=== PATIENT | male | born 1945 | race Caucasian/White ===

== ENCOUNTER 2017-09-06 22:44 | Inpatient (IN) | payer MEDICARE, BC ==
[2017-09-07 00:20] LABS: #Basophils 0.1 thou/uL (0.0-0.2); #Eosinphils 0.1 thou/uL (0.0-0.7); #Lymphocytes 2.1 thou/uL (1.20-3.40); #Monocytes 0.8 thou/uL (0.11-0.59); #Neutrophils 4.2 thou/uL (1.40-6.50); %Basophils 0.7 % (0.0-1.0); %Eosinophils 1.3 % (0.0-10.0); %Lymphocytes 28.9 % (21.0-51.0); %Monocytes 11.4 % (0.0-10.0); Hematocrit 34.4 % (42.0-52.0); Mean Platelet Volume 8.4 fL (7.4-10.4); White Blood Cell (WBC) Count 7.2 thou/uL (4.8-10.8)
[2017-09-07 00:47] LABS: Troponin I 2.015 ng/mL (< 0.028)
[2017-09-07 00:48] LABS: ALT (SGPT) 34 U/L (8-55); AST (SGOT) 39 U/L (5-34); Alkaline Phosphatase 67 U/L (40-150); Anion Gap 14 mmol/L (10-20); BUN (Urea Nitrogen) 21 mg/dL (8.4-25.7); Bilirubin, Total 1.4 mg/dL (0.2-1.2); Calc. Creatinine Clearance 0 mL/min (70-130); Calcium 9.3 mg/dL (7.8-10.44); Carbon Dioxide 23 mmol/L (23-31); Chloride 103 mmol/L (98-107); Estimated GFR-MDRD 60; Globulin 3.4 g/dL (2.4-3.5); Protein, Total 7.4 g/dL (5.8-8.1)
[2017-09-07] MEDS ORDERED: Enoxaparin Sodium 40 MG/0.4 ML SYRINGE ONE (01:11)
[2017-09-07] MEDS ORDERED: Diltiazem HCl 125 MG, Admixture Fee 1 EACH in Sodium Chloride 0.9% 100 ML SLOW IVP SCH (01:30)
[2017-09-07 03:58] LABS: #Eosinphils 0.1 thou/uL (0.0-0.7); #Lymphocytes 1.6 thou/uL (1.20-3.40); #Monocytes 0.8 thou/uL (0.11-0.59); #Neutrophils 3.5 thou/uL (1.40-6.50); %Basophils 0.4 % (0.0-1.0); %Lymphocytes 26.2 % (21.0-51.0); %Monocytes 13.3 % (0.0-10.0); Mean Platelet Volume 8.6 fL (7.4-10.4); Red Blood Cell (RBC) Count 4.23 mill/uL (4.70-6.10)
[2017-09-07 04:16] LABS: Anion Gap 12 mmol/L (10-20); BUN (Urea Nitrogen) 23 mg/dL (8.4-25.7); Calc. Creatinine Clearance 79 mL/min (70-130); Calcium 8.9 mg/dL (7.8-10.44); Carbon Dioxide 26 mmol/L (23-31); Chloride 105 mmol/L (98-107); Estimated GFR-MDRD 61
[2017-09-07 04:27] LABS: Critical Call Chem Troponin I RESULT DECREASING; Troponin I 1.892 ng/mL (< 0.028)
[2017-09-07] MEDS ORDERED: Acetaminophen 325 MG TAB PO PRN (05:03)
[2017-09-07] MEDS ORDERED: Dextrose 5% in Water 1,000 ML IV PRN (05:03)
[2017-09-07] MEDS ORDERED: HYDROcodone/Acetaminophen 5/325 mg Tablet PO PRN (05:03)
[2017-09-07] MEDS ORDERED: Dextrose 50% Abboject 50 ML SYRINGE SLOW IVP PRN (05:03)
[2017-09-07] MEDS ORDERED: HumaLOG 300 UNITS/3 ML VIAL SC PRN ×2 (05:03)
--- NOTE | 2017-09-07 05:11 | PDOC.EVN ---
Event Note - Event Note Event Note: [id number] h&p dictated 1. Chest pain + NSTEMI 2. aFLUTTER 3. DM type 2 4. H/O HTN PlaN; see orders
--- NOTE | 2017-09-07 06:26 | HP ---
DATE OF ADMISSION: 09/06/2017 CHIEF COMPLAINT: Chest pain. HISTORY OF PRESENT ILLNESS: The patient is a 72-year-old male with past medical history of diabetes mellitus type 2, hypertension, history of hemorrhoids. Initially went to outside ER, because of chest pain. Patient started having chest pain today all of sudden, substernal pressure kind of pain associated with some dyspnea also. Patient's symptoms are associated with some nausea also. Denies any fever, denies any chills, denies any cough, denies any sputum production. Symptoms persisted, so he went to outside ER. In the outside ER, the patient was found to be in atrial flutter, the patient's heart rate in 120s to 130s, so patient was given metoprolol IV and also Lovenox 40 mg and patient was transferred here. The patient denies any chest pain, denies any palpations at this time. Denies any nausea, denies any vomiting. PAST MEDICAL HISTORY: As per HPI. PAST SURGICAL HISTORY: Back surgery x2. SOCIAL HISTORY: Denies smoking, denies alcohol, denies any drugs. FAMILY HISTORY: Positive for heart problems. REVIEW OF SYSTEMS: Constitutional: Denies fever, denies any chills. Eyes: No vision problems. Ears: Denies any hearing loss. Neck: Denies any neck pain. Cardiovascular System: Positive for chest pain. Respiratory System: Denies any cough, denies any sputum production. Positive for dyspnea. Musculoskeletal: Positive for bilateral lower extremity swelling. Cranial Nerve System: Denies syncope, denies lightheadedness. Psychiatric: Denies depression or anxiety. Integument: Denies any rash. All other review of systems are reviewed and are negative. PHYSICAL EXAMINATION: CONSTITUTIONAL/VITAL SIGNS: At the time of H\T\P perform, heart rate of 130s, blood pressure is 110/70, afebrile, pulse ox 97%. GENERAL: The patient appears comfortable. HEENT: Pupils equal, round, and reactive to light. Anterior nares patent. Nose normal. Teeth intact. Tongue is moist. NECK: Supple, no JVD. CARDIOVASCULAR SYSTEM: S1, S2 present. Irregular, tachycardic. No murmurs. RESPIRATORY: Diminished breath sounds present. Positive for crackles. No wheezing, no rhonchi. GASTROINTESTINAL: Abdomen is soft, nontender, no guarding, no organomegaly, no masses felt. MUSCULOSKELETAL: Positive for trace edema. CRANIAL NERVE SYSTEM: Awake, follows commands, speech intact, sensory intact. PSYCHIATRIC: Mood appropriate at this time. INTEGUMENTARY: No rashes seen. LABORATORY DATA: At the time of H\T\P performed, sodium is 135, potassium 4, chloride 104, CO2 21, BUN 18, creatinine 1, troponin is 2.015. CK-MB 11.3, white count 7.2, hemoglobin 10.9, platelet count is 230. BNP 405. ASSESSMENT AND PLAN: The patient is a 72-year-old male: 1. Atrial flutter. Plan to start the patient on some Cardizem drip at 5 mg per hour. We will admit the patient to IMU for close monitoring. 2. Heg-RX-[id number] myocardia infarction plus chest pain. The patient is currently chest pain free. The patient received only 40 mg Lovenox in the outside ER, we will get another 40 mg Lovenox now. We will consult cardiology to evaluate the patient. We will check 2D echo. 3. History of hypertension. Monitor blood pressure. Continue home blood pressure medications. 4. History of diabetes mellitus type 2, monitor blood sugars. We will do insulin sliding scale. 5. History of hemorrhoids. Monitor the patient closely. The case was discussed in detail with the patient. CE
[2017-09-07 06:55] LABS: Troponin I 2.101 ng/mL (< 0.028)
--- NOTE | 2017-09-07 08:06 | RAD ---
PORTABLE AP CHEST XRAY: DATE: 09/07/17. HISTORY: Shortness of breath and chest pain. New onset of atrial flutter. COMPARISON: No prior studies are available for comparison. FINDINGS: Cardiac silhouette is magnified by projection but does appear mildly enlarged. Pulmonary vasculatur e is within normal limits. The lungs are clear. Vascular calcification is seen in the thoracic aor ta. There are degenerative changes in the spine. IMPRESSION: 1. No acute cardiopulmonary process. 2. Mild cardiomegaly. POS: MED
--- NOTE | 2017-09-07 11:18 | PDOC.PN ---
- Subjective Encounter Start Date: 09/07/17 Encounter Start Time: 10:45 Subjective: f/u for CP and A-flutter with RVR on Cardizem gtt. Troponins elevated -: and tx with Lovenox and ASA. - Objective MAR Reviewed: Yes Vital Signs & Weight: Vital Signs (12 hours) Temp Pulse Resp BP Pulse Ox 09/07/17 07:41 98.1 F 104 H 16 95 09/07/17 07:07 98.1 F 104 H 16 126/69 95 09/07/17 02:46 98.4 F 109 H 18 129/90 100 09/07/17 02:35 98.4 F 109 H 18 99 Weight Weight 217 lb 9.6 oz Result Diagrams: 09/08/17 05:10 09/08/17 05:10 Additional Labs: Accuchecks 09/07/17 05:39 POC Glucose 134 H Radiology Reviewed by me: Yes (PCXR - mild vascular prominence) EKG Reviewed by me: Yes (Tele - A-flutter in 80's) Phys Exam - Physical Examination Constitutional: NAD HEENT: PERRLA, oral pharynx no lesions Neck: no JVD, supple Respiratory: no wheezing, clear to auscultation bilateral Cardiovascular: irregular Gastrointestinal: soft, non-tender, no distention, positive bowel sounds Musculoskeletal: no edema, pulses present Neurological: normal sensation, moves all 4 limbs Psychiatric: A&O x 3 Skin: normal turgor, cap refill <2 seconds Dx/Plan (1) Atrial flutter with rapid ventricular response Code(s): I48.92 - UNSPECIFIED ATRIAL FLUTTER Status: Acute Comment: Continue Cardizem gtt, Cardiology consult, EP evaluation, 2D echo pending, check TSH and Mg++ (2) NSTEMI (non-ST elevated myocardial infarction) Code(s): I21.4 - NON-ST ELEVATION (NSTEMI) MYOCARDIAL INFARCTION Status: Acute Comment: Lovenox 40mg sc q12h, ASA, Cardiology evaluation (3) Normocytic anemia Code(s): D64.9 - ANEMIA, UNSPECIFIED Status: Chronic Comment: Chronic anemia , mild, no evidence of acute loss, serial H/H monitoring (4) CKD (chronic kidney disease), stage II Code(s): N18.2 - CHRONIC KIDNEY DISEASE, STAGE 2 (MILD) Status: Chronic Comment: Avoid nephrotoxic agents and limit contrast media, serial monitoring - Plan DVT proph w/SCDs Stable overall -: Continue ASA 325mg daily -: Continue Lovenox 40mg sc q12h -: 2D echo pending -: EP evaluation for ablation * Check TSH, Mg++ * AM lab: BMP, CBC
[2017-09-07] MEDS ORDERED: Aspirin 325 mg Enteric Coated Tablet PO SCH (11:45)
[2017-09-07] MEDS ORDERED: Furosemide 40 MG/4 ML VIAL SLOW IVP SCH (13:00)
--- NOTE | 2017-09-07 14:16 | CON ---
DATE OF SERVICE: 09/07/2017 SERVICE: Pulmonary Medicine. REASON FOR CONSULTATION: CU patient. HISTORY OF PRESENT ILLNESS: The patient is a very pleasant 72-year-old white male with past medical history significant for nothing. He presents to the hospital with a roughly 1-2 week history of in creasing orthopnea. For the last 3 days, he started having dyspnea with exertion that progressed. He had some heaviness in his chest. He also was feeling some palpitations. He did not have any anahy sea, vomiting, diarrhea. He notes some constipation. He otherwise, was in his usual state of healt h and had no infectious prodrome or sick contacts. He does note some excessive daytime sleepiness a nd other features that could be consistent with sleep apnea which have gotten much worse over the pa st 2-3 weeks. That being said, it is not clear whether or not these were acute features more chroni c associated with possible sleep apnea. PAST MEDICAL HISTORY: 1. Type 2 diabetes mellitus. 2. Hypertension. 3. Atrial fibrillation with rapid ventricular response. PAST SURGICAL HISTORY: Back surgery x2. SOCIAL HISTORY: Negative for alcohol, tobacco or illicit drug use. He has no exposure to chemicals , dust asbestos or tuberculosis. FAMILY HISTORY: Noncontributory. ALLERGIES: PENICILLIN G. REVIEW OF SYSTEMS: General, head, ears, eyes, nose, throat, cardiovascular, respiratory, GI, , mu sculoskeletal, neurologic and skin is negative except as mentioned in the HPI. MEDICATIONS LIST: His inpatient medications were reviewed. There were no specific updates were mad e at this time. PHYSICAL EXAMINATION: VITAL SIGNS: Afebrile, pulse 73, blood pressure 139/81, respirations 16, saturation 99% on 2 liters nasal cannula. GENERAL: The patient is awake and alert, in no apparent distress. LUNGS: Excellent air entry. There is no prolonged expiratory phase. Depending crackles are presen t. He has excellent air entry. I do not appreciate rhonchi or wheezing. HEART: Normal rate, irregular. ABDOMEN: Soft, nontender, nondistended, bowel sounds positive. MUSCULOSKELETAL: No cyanosis or clubbing. There is trace pitting in the bilateral lower extremitie s. GENITOURINARY: No F[place] catheter. NEUROLOGIC: Grossly nonfocal. LABORATORY DATA: WBC 6.0, hemoglobin 10.4, and platelets 208,000. Basic metabolic profile is unrem arkable with creatinine of 1.17. Liver function studies are unremarkable. Cardiac enzymes are 2.10 1. Total bilirubin is minimally elevated. IMAGING: Chest x-ray demonstrates no acute cardiopulmonary abnormality. There was mild cardiomegal y present. Cephalization is evident. Echocardiogram demonstrates 35% ejection fraction. Atrial fl utter is the underlying rhythm. Left ventricular size is mildly enlarged. ASSESSMENT: 1. Acute hypoxic respiratory failure, improving. 2. Atrial flutter with rapid ventricular response and variable conduction, currently rate controlle d. 3. Acute systolic heart failure. 4. Non-ST elevation myocardial infarction. PLAN: Cardiology consultation has been placed. The patient can be transitioned out of the IMCU to the telemetry unit. Pulmonary Critical Care will continue to follow for the next 24-48 hours while we initiate our investigation into the patient's presentation. Currently, he is rate controlled wit h diltiazem drip. Anticoagulation has already been initiated.
[2017-09-07] MEDS ORDERED: Communication Order-Pharmacy FS SCH (15:00)
[2017-09-07] MEDS ORDERED: diphenhydrAMINE 50 MG CAP PO SCH (15:00)
[2017-09-07] MEDS ORDERED: Diazepam 5 MG TAB PO SCH (15:00)
[2017-09-07] MEDS ORDERED: Famotidine/PF 20 mg/2ml Vial IVP SCH (15:00)
[2017-09-07] MEDS ORDERED: Rivaroxaban 10 MG TAB PO SCH (18:00)
[2017-09-07] MEDS: Senokot S 8.6-50 MG TAB PO SCH (20:30)
[2017-09-07] MEDS ORDERED: Enoxaparin Sodium 100 MG/ML SYRINGE SC SCH ×2 (21:00)
[2017-09-08 06:08] LABS: #Eosinphils 0.2 thou/uL (0.0-0.7); #Monocytes 0.7 thou/uL (0.11-0.59); #Neutrophils 4.9 thou/uL (1.40-6.50); %Basophils 0.2 % (0.0-1.0); %Eosinophils 2.3 % (0.0-10.0); %Lymphocytes 15.2 % (21.0-51.0); %Monocytes 10.5 % (0.0-10.0); Mean Platelet Volume 8.8 fL (7.4-10.4); Red Blood Cell (RBC) Count 4.39 mill/uL (4.70-6.10); White Blood Cell (WBC) Count 6.9 thou/uL (4.8-10.8)
[2017-09-08 06:21] LABS: ALT (SGPT) 29 U/L (8-55); AST (SGOT) 27 U/L (5-34); Alkaline Phosphatase 61 U/L (40-150); Anion Gap 15 mmol/L (10-20); BUN (Urea Nitrogen) 19 mg/dL (8.4-25.7); Bilirubin, Total 1.6 mg/dL (0.2-1.2); Calc. Creatinine Clearance 84 mL/min (70-130); Calcium 8.7 mg/dL (7.8-10.44); Carbon Dioxide 25 mmol/L (23-31); Chloride 101 mmol/L (98-107); Estimated GFR-MDRD 73; Protein, Total 6.4 g/dL (5.8-8.1)
[2017-09-08 06:29] LABS: Critical Call Chem Troponin I RESULT DECREASING; Troponin I 2.018 ng/mL (< 0.028)
[2017-09-08] MEDS: Senokot S 8.6-50 MG TAB PO SCH (07:43)
[2017-09-08] MEDS ORDERED: Aspirin 325 mg Enteric Coated Tablet PO SCH (09:00)
[2017-09-08] MEDS ORDERED: Furosemide 20 MG TAB PO SCH (09:00)
[2017-09-08] MEDS ORDERED: Carvedilol 3.125 MG TAB PO SCH (09:00)
[2017-09-08] MEDS ORDERED: Midazolam HCl 2 mg/2 ml Vial ONE (09:47)
[2017-09-08] MEDS ORDERED: Fentanyl 100 MCG/2 ML VIAL ONE (09:47)
[2017-09-08] MEDS ORDERED: Heparin 10,000 UNITS/1 ML VIAL ONE (09:51)
[2017-09-08] MEDS ORDERED: Nitroglycerin 100MG/250ML BOT 250 ML ONE (09:51)
[2017-09-08] MEDS ORDERED: Acetaminophen/Codeine 30-300mg Tablet PO PRN ×2 (10:18)
[2017-09-08] MEDS ORDERED: Nitroglycerin 0.4 MG TAB (25 Tab Bottle) SL PRN (10:18)
[2017-09-08] MEDS ORDERED: traMADol HCl 50 MG TAB PO PRN (10:18)
[2017-09-08] MEDS ORDERED: Sodium Chloride 0.9% 200 ML IV SCH (10:30)
[2017-09-08] MEDS ORDERED: Midazolam HCl 5 mg/5 ml Vial ONE (10:58)
[2017-09-08] MEDS ORDERED: Fentanyl 250 MCG/5 ML VIAL ONE (10:58)
--- NOTE | 2017-09-08 11:20 | PDOC.PN ---
- Subjective Encounter Start Date: 09/08/17 Encounter Start Time: 11:15 Subjective: f/u for A-flutter RVR, NSTEMI and LHC showing 3v CAD. Plan for urgent -: CABG this am. No current CP. - Objective MAR Reviewed: Yes Vital Signs & Weight: Vital Signs (12 hours) Temp Pulse Resp BP BP Pulse Ox 09/08/17 10:19 88 16 129/89 09/08/17 10:18 97.6 F 88 16 129/89 94 L 09/08/17 08:00 98.4 F 71 16 127/85 96 09/08/17 05:29 93 16 129/90 09/08/17 04:00 97.9 F 132 H 18 132/93 H 95 Weight Weight 198 lb 8 oz I&O: 09/07/17 09/08/17 09/09/17 06:59 06:59 06:59 Intake Total 790 Output Total 2875 Balance -2084 Result Diagrams: 09/08/17 05:10 09/08/17 05:10 Additional Labs: Accuchecks 09/08/17 09/07/17 09/07/17 05:58 20:29 16:57 POC Glucose 142 H 185 H 129 H Laboratory Tests 09/07/17 09/07/17 11:22 11:22 Magnesium 1.8 TSH 3rd Generation [id number] Radiology Reviewed by me: Yes (LHC - 3v CAD, EF 35%, 2D echo - EF 30-35%) EKG Reviewed by me: Yes (Tele - A-flutter in 80's) Phys Exam - Physical Examination Constitutional: NAD HEENT: PERRLA, oral pharynx no lesions Neck: no JVD, supple Respiratory: no wheezing, clear to auscultation bilateral Cardiovascular: irregular Gastrointestinal: soft, non-tender, no distention, positive bowel sounds Musculoskeletal: no edema, pulses present Neurological: normal sensation, moves all 4 limbs Psychiatric: A&O x 3 Skin: normal turgor, cap refill <2 seconds Dx/Plan (1) Atrial flutter with rapid ventricular response Code(s): I48.92 - UNSPECIFIED ATRIAL FLUTTER Status: Acute Comment: Likely due to underlying ischemia and CAD, rate control measures, EP eval (2) NSTEMI (non-ST elevated myocardial infarction) Code(s): I21.4 - NON-ST ELEVATION (NSTEMI) MYOCARDIAL INFARCTION Status: Acute Comment: ASA 325mg daily, plan for CABG today, statin for outpt (3) Normocytic anemia Code(s): D64.9 - ANEMIA, UNSPECIFIED Status: Chronic Comment: Chronic anemia , mild, no evidence of acute loss, serial H/H monitoring (4) CKD (chronic kidney disease), stage II Code(s): N18.2 - CHRONIC KIDNEY DISEASE, STAGE 2 (MILD) Status: Chronic Comment: Avoid nephrotoxic agents and limit contrast media, serial monitoring (5) 3-vessel coronary artery disease Status: Acute Comment: LAD, Cx, RCA with varying stenosis, plan for urgent CABG 09/08/17 (6) Ischemic cardiomyopathy Code(s): I25.5 - ISCHEMIC CARDIOMYOPATHY Status: Chronic Comment: EF 30-35% , see above, CABG today - Plan [employer], DVT proph w/SCDs CABG today -: Continue ASA 325mg daily -: Statin after CABG -: Continue Coreg 3.125mg BID -: May need to consider LifeVest on d/c * AM lab: BMP, CBC, Lipid panel
[2017-09-08] MEDS ORDERED: [UNRECOGNIZED DRUG - REMARK] FS SCH (11:22)
[2017-09-08] MEDS ORDERED: Heparin 10,000 UNITS/1 ML VIAL 30,000 UNITS in Sodium Chloride 0.9% 1,000 ML FS SCH (11:30)
--- NOTE | 2017-09-08 11:39 | CON ---
DATE OF CONSULTATION: 09/07/2017 REFERRING PHYSICIAN: Dr. Stout REASON FOR CONSULTATION: Chest pain with atrial flutter. HISTORY OF PRESENT ILLNESS: Mr. Couch is a 72-year-old gentleman who is very active at home. He has a history of type 2 diabetes mellitus and hypertension. He presented to [facility] complaining of chest pain described as a substernal pressure and dyspnea. 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 He is very active, works ou [employer], has just not been able to perform at his peak over this period of time. On evaluation he was found to be in atrial flutter with variable ventricular response and was transf erred to our facility for further evaluation. Echo was performed and showed LV dysfunction in the moderate range with ejection fraction of 30-35%. He has never had heart problems in the past that he knows of and has otherwise been stable. PAST MEDICAL HISTORY: 1. Type 2 diabetes mellitus. 2. Hypertension. 3. Hemorrhoids. PAST SURGICAL HISTORY: Back surgery x2. ALLERGIES: PENICILLIN. SOCIAL HISTORY: He denies tobacco use, ethanol abuse, recreational drug use. FAMILY HISTORY: Positive for heart problems, but not at an early age. CURRENT MEDICATIONS AT HOME: Metformin 500 mg b.i.d. REVIEW OF SYSTEMS: As per the history of present illness. Remainder of 12 system review is negativ e. PHYSICAL EXAMINATION: VITAL SIGNS: Blood pressure 129/89, pulse 130s and irregularly irregular, respiratory rate 16 and n onlabored, temperature 98.8. GENERAL: This is a well-developed, well-nourished 72-year-old gentleman who appears young er than his stated age. He is alert and oriented x4, he answers questions appropriately. HEENT: Head was atraumatic, normocephalic. Pupils were equally round and reactive. Sclerae and co njunctivae are clear. There are no oral lesions. NECK: Supple, no JVD, thyromegaly, carotid bruits. CHEST: Symmetrical inspiration and expiration. HEART: Irregularly irregular with no murmur, S3 or S4. The PMI is nondisplaced, not enlarged. LUNGS: Clear to auscultation in all stinson. No adventitious sounds appreciated. ABDOMEN: Soft, nontender, nondistended without mass or organomegaly. Bowel sounds are present in a ll 4 quadrants. No flank bruits auscultated. EXTREMITIES: 2+ pulses noted bilaterally. Lower extremity strength 5/5 bilaterally. There is no c lubbing, cyanosis or edema. NEUROLOGIC: Grossly intact with no focal motor deficits appreciated. DATABASE: EKG reveals atrial flutter with variable conduction. CBC reveals a white count 7, H\T\H of 10 and 34, platelet count 213,000. Differential; white blood cells normal. Red cell indices normocytic. Chemistries reveal normal electrolytes, BUN and creatinine 19 and 1.8. GFR is estimated at 73. Glu cose 152. LFTs were normal. Troponin was mildly elevated to 2, CK and CK-MB measurements are arturo l. ASSESSMENT: 1. Recent onset atrial flutter with variable response. 2. Isolated troponin elevation secondary to #1. 3. Left ventricular dysfunction, new diagnosis. 4. Congestive heart failure, acute, combined. 5. Chronic kidney disease stage 2. 6. Type 2 diabetes mellitus. 7. Hypertension, controlled. RECOMMENDATIONS: 1. From a cardiac standpoint, he is stable, a bit volume overloaded with mild dyspnea on exertion. We opted to include diuretics in his medicine regimen currently for stabilization of this condition . Due to his LV dysfunction I do think that further evaluation for underlying coronary disease is w arranted and necessary. We have discussed risks, benefits and possible complications involving this procedure and we will proceed via radial approach if possible. We will set this up for tomorrow mo rning. 2. Depending on the status of his coronary anatomy, we will decide whether revascularization is nec essary prior to anticoagulation and treatment for his underlying rhythm disorder. We will make furt her recommendations based on the results of his cath. We will follow along and appreciate the opportunity to participate in his care.
[2017-09-08] MEDS ORDERED: Levofloxacin 500 mg/D5W 100 ml Premix Bag ONE (11:41)
[2017-09-08] MEDS ORDERED: Clindamycin/D5W 900 mg/50 ml Premix Bag ONE (11:41)
--- NOTE | 2017-09-08 11:53 | CON ---
DATE OF CONSULTATION: 09/08/2017 HISTORY OF PRESENT ILLNESS: Mr. Couch is a 72-year-old gentleman who was admitted to the [facility], short of breath with increasing levels of the intensity along with heaviness in his chest. Janay wood also had some palpitations. He has undergone cardiac catheterization, which revealed severe 3-ves gilberto disease. Ejection fraction is approximately 30%. He is in atrial flutter currently. The patient has no previous history of coronary artery disease, peripheral vascular disease, cerebro vascular disease, aortic aneurysm, rather vascular problems. He has no arrhythmia history. Current ly, he is resting comfortably in bed without complaint. PAST MEDICAL HISTORY: 1. Hypertension. 2. Diabetes mellitus. PAST SURGICAL HISTORY: Back surgery x2 and hernia surgery. SOCIAL HISTORY: He does not use alcohol, tobacco or other drugs. He [place]. ALLERGIES: PENICILLIN. REVIEW OF SYSTEMS: Ten-point review of systems is performed and is negative except as above. PHYSICAL EXAMINATION: GENERAL: This is a well-developed, well-nourished male resting comfortably in bed without complaint . VITAL SIGNS: Height 6 feet, weight 198 pounds, BSA is 2.14. Temperature is 97.6, pulse is 88 and r egular, blood pressure 129/89. HEENT: Sclerae nonicteric. Pupils equal, round bilaterally. NECK: Supple without bruit. CHEST: Clear bilaterally. HEART: Rhythm is regular without murmur. ABDOMEN: Soft and nontender without mass. EXTREMITIES: No cyanosis, clubbing or edema. VASCULAR: He has palpable carotid, radial, femoral, posterior tibial pulses bilaterally. VENOUS: There are no venous varicosities or venous stasis changes. ASSESSMENT AND PLAN: This is a pleasant 72-year-old gentleman, who has been in and out of atrial fl utter along with shortness of breath and chest heaviness. Cardiac catheterization revealed severe 3 -vessel disease with potential targets include the left anterior descending, diagonal, ramus, obtuse marginal, and distal right coronary. I have discussed coronary artery bypass grafting along with m aze procedure and ligation of his left atrial appendage. He is agreeable to proceed. We will plan on surgery as soon as the operating room is available.
[2017-09-08] MEDS ORDERED: PHENYLEPHRINE-NS 100 MCG/ML 10 ML SYRINGE ONE ×2 (11:54→12:11)
[2017-09-08] MEDS ORDERED: Dexmedetomidine 200 MCG/2 ML VIAL ONE (11:54)
[2017-09-08] MEDS ORDERED: Propofol 200 MG/20 ML VIAL ONE (12:11)
[2017-09-08] MEDS ORDERED: Esmolol 100 MG/10 ML VIAL ONE (12:11)
[2017-09-08] MEDS ORDERED: Lidocaine 1% PF 5 ML VIAL ONE (12:11)
[2017-09-08] MEDS ORDERED: ePHEDrine/0.9% NaCl/PF SYRINGE 50 mg/10 ml ONE (12:11)
[2017-09-08] MEDS ORDERED: Milrinone 10 MG/10 ML VIAL ONE (12:30)
[2017-09-08] MEDS ORDERED: Insulin Regular 300 UNITS/3 ML VIAL ONE (14:08)
[2017-09-08] MEDS ORDERED: Rocuronium Bromide 50 MG/5 ML VIAL ONE (14:28)
[2017-09-08 16:46] LABS: Oxyhemoglobin 96.7 % (94.0-97.0)
[2017-09-08 16:47] LABS: Sodium 140 mmol/L (135-148)
[2017-09-08 16:48] LABS: Mechanical Tidal Volume 600 ml; Mode SIMV/PS; Modified Allen's Test NOT DONE; Pressure Support 10 cmH2O; Vent YES
[2017-09-08] MEDS ORDERED: Ondansetron HCl/PF 4 MG/2 ML Vial IVP PRN (16:50)
[2017-09-08] MEDS ORDERED: Bisacodyl 5 MG TAB PO PRN (16:50)
[2017-09-08] MEDS ORDERED: Norepinephrine 8 MG/0.9% NS 250 ML IVPB PRN (16:50)
[2017-09-08] MEDS ORDERED: Potassium Chloride 20 MEQ/100 ML PREMIX BAG IVPB PRN (16:50)
[2017-09-08] MEDS ORDERED: Fentanyl 100 MCG/2 ML VIAL SLOW IVP PRN ×2 (16:50)
[2017-09-08] MEDS ORDERED: Mag-Al 1200 mg/1200 mg/30 ML UDCUP PO PRN (16:50)
[2017-09-08] MEDS ORDERED: HYDROcodone/Acetaminophen 5/325 mg Tablet PO PRN (16:50)
[2017-09-08] MEDS ORDERED: Post-Op Insulin Drip Protocol IVPB ONE (16:50)
[2017-09-08] MEDS ORDERED: Morphine 2 MG/ML SYRINGE SLOW IVP PRN (16:50)
[2017-09-08] MEDS ORDERED: D5 1/2 NS w/20 mEq KCL 1,000 ML IV SCH (16:50)
[2017-09-08] MEDS ORDERED: hydrALAZINE 20 MG/ML VIAL SLOW IVP PRN (16:50)
[2017-09-08] MEDS ORDERED: Phenylephrine 10 MG/NS 250 ML 250 ML IVPB PRN (16:50)
[2017-09-08] MEDS ORDERED: Bisacodyl 10 MG SUPP PR PRN (16:50)
[2017-09-08] MEDS ORDERED: Nitroglycerin 50 MG/250 ML BOT 250 ML IVPB PRN (16:50)
[2017-09-08] MEDS ORDERED: Promethazine HCl 25 MG/ML VIAL IM PRN (16:50)
[2017-09-08] MEDS ORDERED: Guaifenesin DM 100-10/5 ML UDCUP PO PRN (16:50)
[2017-09-08] MEDS ORDERED: Hetastarch 6% 500 ML 500 ML IVPB PRN (16:50)
[2017-09-08] MEDS ORDERED: Acetaminophen 325 MG TAB PO PRN (16:50)
[2017-09-08] MEDS ORDERED: Dextrose 50% Abboject 50 ML SYRINGE SLOW IVP PRN (16:57)
[2017-09-08] MEDS ORDERED: Dextrose 5% in Water 1,000 ML IV PRN (16:57)
[2017-09-08 17:02] LABS: #Eosinphils 0.4 thou/uL (0.0-0.7); #Lymphocytes 1.8 thou/uL (1.20-3.40); #Monocytes 1.3 thou/uL (0.11-0.59); #Neutrophils 13.6 thou/uL (1.40-6.50); %Basophils 0.2 % (0.0-1.0); %Eosinophils 2.1 % (0.0-10.0); %Lymphocytes 10.5 % (21.0-51.0); %Monocytes 7.5 % (0.0-10.0); Hematocrit 30.5 % (42.0-52.0); Mean Platelet Volume 8.3 fL (7.4-10.4); Red Blood Cell (RBC) Count 3.81 mill/uL (4.70-6.10)
[2017-09-08 17:06] LABS: PTT 30.5 SEC (22.9-36.1); Prothrombin Time 20.3 SEC (12.0-14.7)
[2017-09-08] MEDS ORDERED: Magnesium 2 GM/NS 0.9% 50 ML 2 GM in Premix Bag 1 BAG IVPB SCH (17:15)
[2017-09-08 17:17] LABS: Anion Gap 12 mmol/L (10-20); BUN (Urea Nitrogen) 17 mg/dL (8.4-25.7); Calc. Creatinine Clearance 109 mL/min (70-130); Calcium 7.9 mg/dL (7.8-10.44); Carbon Dioxide 23 mmol/L (23-31); Chloride 105 mmol/L (98-107); Estimated GFR-MDRD Greater than 90
[2017-09-08] MEDS: Ketorolac Tromethamine 30 MG/ML VIAL IVP SCH ×2 (17:24→23:01)
[2017-09-08] MEDS: Clindamycin/D5W 900 MG in Premix Bag 1 BAG IVPB SCH ×2 (17:25→23:00)
[2017-09-08] MEDS ORDERED: Rivaroxaban 10 MG TAB PO SCH (18:00)
--- NOTE | 2017-09-08 18:35 | RAD ---
CHEST ONE VIEW: 09/08/17 HISTORY: Post open heart surgery. COMPARISON: Chest one view prior day. FINDINGS: Patient intubated with endotracheal tube tip at level of the clavicles. Central venous catheter is i n place with tip at the anterior SVC. Heart size is enlarged. No large pericardial effusion. Thoracostomy tube is in place. Enteric tube tip is at the gastric body. IMPRESSION: Expected postoperative changes. No complication. POS: JESSICA
--- NOTE | 2017-09-08 19:05 | OP ---
DATE OF OPERATION: 09/08/2017 PREOPERATIVE DIAGNOSES: Coronary artery disease/hypertension/severely depressed left ventricular ej ection fraction/atrial flutter. POSTOPERATIVE DIAGNOSES: Coronary artery disease/hypertension/severely depressed left ventricular e jection fraction/atrial flutter. PROCEDURES: Coronary bypass grafting x5: 1. Left internal mammary artery to 2.0 mm LAD -- good conduit and target. 2. Reversed saphenous vein to 1.5 mm diagonal -- good conduit and target. 3. Reverse saphenous vein to 1.5 mm OM -- good conduit and small target. 4. Reverse saphenous vein to 2.0 mm ramus -- good conduit and target. 5. Reverse saphenous vein to 1.5 mm acute marginal -- good conduit and small target. SURGEONS: Dr. Vamshi Hale and Dr. Chris Lu. ANESTHESIA: General endotracheal, Dr. Loki Nation and Dr. Clifton Pastrana. PUMP TIME: 101 minutes. CROSS-CLAMP TIME: 58 minutes. LOW CORE TEMPERATURE: 32 degrees Celsius. ICT BUSINESS DEVELOPMENT MANAGER: Rita Harper. DRAINS: 24-Swazi chest tubes x2. DRIPS: Levophed at 8 mcg/kg per minute. TRANSFUSIONS: None. PROCEDURE IN DETAIL: After consent was obtained, the patient was brought to the operating room and placed in the supine position on the operating room table. Appropriate anesthetic monitor was place d and general endotracheal anesthesia induced. Chest, abdomen, and legs were prepped and draped in usual sterile fashion. Greater saphenous vein was harvested from the left lower extremity using an endoscopic technique. Wounds were irrigated and closed in layers. Median sternotomy was performed. Left internal mammary artery was harvested as a pedicle graft. The patient was systemically hepar inized. Distal pedicle was divided and infused with papaverine. Thymic fat and pericardium were di vided with electrocautery. Pericardial stay sutures were placed. Aortic and atrial cannulation was performed. After adequate heparinization, retrograde prime was performed. The patient was placed on cardiopulmonary bypass. Distal targets were marked. Aortic cross-clamp was applied and antegrad e sanguinous cardioplegic arrest obtained. One liter of antegrade cold cardioplegia was given. Top ical cold solution was used. tab ticketbroker epicardial ablation device was used to ablate both left and right pulmonary veins x2 at th e venoatrial atrial junction. The base of the left atrial appendage was ablated x1. Left atrial ap pendage was then ligated using 4-0 Prolene in a dual layer horizontal mattress fashion. Reversed saphenous vein was anastomosed to the OM in end-to-side fashion with running 7-0 Prolene frey ture. Anastomosis was tested and was hemostatic. Reversed saphenous vein was anastomosed to the ac genevieve marginal in end-to-side fashion with running 7-0 Prolene suture. Anastomosis was tested and was hemostatic. Reversed saphenous vein was anastomosed to the ramus in end-to-side fashion with runni ng 7-0 Prolene suture. Anastomosis was tested and was hemostatic. Reversed saphenous vein was anas tomosed to the diagonal in end-to-side fashion with running 7-0 Prolene suture. Anastomosis was north y[place]ir and was hemostatic. Mammary artery was brought through a window in the pericardium and anastomo sed to the LAD in end-to-side fashion with running 7-0 Prolene suture. On release of the mammary cl amp, there was good hooding in the anastomosis and good hemostasis. There was good distal flow. Pe dicle was secured with interrupted 6-0 Prolene suture. Cross-clamp was removed and partial occludin g clamp placed. Saphenous veins to the acute marginal ramus and OM were anastomosed individual punc h sites in the aorta. Saphenous vein to the diagonal was anastomosed to the sidewall of the ramus g raft. Partial occluding clamp was removed and grafts deaired. Anastomoses were inspected for hemos tasis, which was good. The patient was warmed and weaned from cardiopulmonary bypass. After resump tion of sinus rhythm, good hemodynamics, and temperature greater than 36.5, bypass was discontinued. Transfusions were given. Protamine was administered. Decannulation was performed and pursestring sutures secured. After adequate hemostasis had been obtained, 24-Swazi chest tubes were placed in the mediastinum. Ventricular pacing wires had been placed, but never used. The sternum was treate d with vancomycin paste. After adequate hemostasis had been obtained, the sternum was closed with # 7 wire. Sternum was treated with platelet-rich plasma and wires twisted. Wounds were irrigated, tr eated with platelet-poor plasma, and closed in multiple layers. The patient tolerated the procedure well, and was transferred to the intensive care unit in stable, but critical condition. Needle, sp onge, and instrument counts were all reported as correct at the end of the procedure.
[2017-09-08] MEDS: Insulin Regular 300 UNITS/3 ML VIAL SC PRN ×2 (19:47→23:01)
[2017-09-08 20:12] LABS: Pressure Support 10 cmH2O; Sodium 138 mmol/L (135-148); Vent YES
[2017-09-08] MEDS: Famotidine/PF 20 mg/2ml Vial SLOW IVP SCH (20:12)
[2017-09-08 20:13] LABS: Mode CPAP
[2017-09-08 22:41] LABS: Hematocrit 30.9 % (42.0-52.0)
[2017-09-09] MEDS: Insulin Regular 300 UNITS/3 ML VIAL SC PRN ×6 (04:31→23:28)
[2017-09-09 04:35] LABS: #Monocytes 1.3 thou/uL (0.11-0.59); #Neutrophils 11.8 thou/uL (1.40-6.50); %Basophils 0.1 % (0.0-1.0); %Eosinophils 0.1 % (0.0-10.0); %Lymphocytes 7.1 % (21.0-51.0); %Monocytes 8.9 % (0.0-10.0); Hematocrit 29.9 % (42.0-52.0); Mean Platelet Volume 9.7 fL (7.4-10.4); Red Blood Cell (RBC) Count 3.68 mill/uL (4.70-6.10)
[2017-09-09 05:06] LABS: Anion Gap 13 mmol/L (10-20); BUN (Urea Nitrogen) 23 mg/dL (8.4-25.7); Calc. Creatinine Clearance 71 mL/min (70-130); Carbon Dioxide 24 mmol/L (23-31); Chloride 105 mmol/L (98-107); Estimated GFR-MDRD 61
[2017-09-09] MEDS: Clindamycin/D5W 900 MG in Premix Bag 1 BAG IVPB SCH ×2 (05:16→12:48)
[2017-09-09] MEDS: Ketorolac Tromethamine 30 MG/ML VIAL IVP SCH ×4 (05:16→23:22)
[2017-09-09] MEDS: Aspirin 325 MG TAB PO SCH (08:28)
[2017-09-09] MEDS: Famotidine/PF 20 mg/2ml Vial SLOW IVP SCH ×2 (08:28→20:36)
[2017-09-09] MEDS ORDERED: Albumin 25% 25 GM/100 ML BOT IVPB SCH (09:00)
[2017-09-09] MEDS: Magnesium 2 GM/NS 0.9% 50 ML 2 GM in Premix Bag 1 BAG IVPB SCH (09:11)
--- NOTE | 2017-09-09 09:39 | RAD ---
CHEST 1 VIEW: HISTORY: Open heart surgery. COMPARISON: Chest 1 view prior day. FINDINGS: Enteric tube has been removed. The patient is extubated. Central venous catheter is similar. Hear t size is prominent. Small opacity right lung base, likely a small layering effusion. IMPRESSION: Interval extubation and removal of the enteric tube without complication. POS: JESSICA
--- NOTE | 2017-09-09 12:27 | PDOC.CTH ---
Cardiology Progress Note - Subjective He is doing well. He had his bypass yesterday x 5. - Objective Vital Signs Temp Pulse Resp Pulse Ox 09/09/17 07:56 97 09/09/17 07:31 97.9 F 74 15 94 L 09/09/17 07:00 97.9 F 09/09/17 04:00 98.5 F 94 L Weight 187 lb 9.814 oz 09/08/17 09/09/17 09/10/17 06:59 06:59 06:59 Intake Total 790 932 280 Output Total 2875 675 119 Balance -2085 257 161 - Physical Examination General/Neuro: alert & oriented x3, NAD Neck: no JVD present Lungs: unlabored respirations Heart: RRR Abdomen: NT/ND Extremities: + edema B (2+ left leg) - Telemetry Telemetry Rhythm: NSR - Labs Result Diagrams: 09/09/17 03:45 09/09/17 03:45 Troponin/CKMB CK-MB (CK-2) 11.3 ng/mL (0-6.6) H* 09/07/17 00:10 Troponin I 2.018 ng/mL (< 0.028) H* 09/08/17 05:10 - Assessment/Plan 1. Multivessel CAD 2. s/p CABG 3. Aflutteer, currenty in sinus. PLAN: - Continue post op care. - Increase PT once tubes out. - Aspirin, statin for life. - BB and ACEI once BP allows. - Xarelto before discharge for stroke prophylaxis.
--- NOTE | 2017-09-09 12:41 | PRG ---
DATE OF SERVICE: 09/09/2017 SUBJECTIVE: This morning, he is awake, alert, responsive. He was extubated last night. OBJECTIVE: VITAL SIGNS: Sats are 96%, blood pressure is low at 101/63, temperature 97. He is on low-dose Levo phed. I's and O's are 932 in and 675 out. CHEST: With decreased breath sounds. No wheezing. CARDIAC: Normal S1 and S2. ABDOMEN: Soft, no masses. IMAGING: His chest x-ray shows no acute infiltrates. LABORATORY DATA: White count 14,000, H\T\H 9 and 29, platelet count 216. Electrolytes are normal. IMPRESSION: 1. Status post coronary artery bypass graft. 2. Hypotension. 3. Diabetes. Trial of albumin has been given. Hopefully, we can wean the Levophed. Continue observation in the ICU. We will follow.
--- NOTE | 2017-09-09 16:11 | PDOC.PN ---
- Subjective Encounter Start Date: 09/09/17 Encounter Start Time: 15:30 Subjective: f/u s/p CABG x 5 grafts POD#1. States doing ok overall. Remains on -: Levophed gtt for hypotension but o/w doing ok. - Objective MAR Reviewed: Yes Vital Signs & Weight: Vital Signs (12 hours) Temp Pulse Resp Pulse Ox 09/09/17 12:00 97.8 F 09/09/17 07:56 97 09/09/17 07:31 97.9 F 74 15 94 L 09/09/17 07:00 97.9 F Weight Weight 187 lb 9.814 oz Most Recent Monitor Data Heart Rate from ECG 75 NIBP 120/70 NIBP BP-Mean 85 Respiration from ECG 14 SpO2 97 I&O: 09/08/17 09/09/17 09/10/17 06:59 06:59 06:59 Intake Total 543 588 6313 Output Total 2875 675 314 Balance -2085 257 1116 Result Diagrams: 09/09/17 03:45 09/09/17 03:45 Additional Labs: Accuchecks 09/09/17 09/09/17 09/09/17 12:32 08:34 03:45 POC Glucose 123 H 121 H 124 H 09/08/17 09/08/17 09/08/17 22:59 19:46 16:42 POC Glucose 144 H 133 H 86 09/08/17 16:25 POC Glucose 85 Radiology Reviewed by me: Yes (PCXR - extubation, no acute process, lines in place) EKG Reviewed by me: Yes (Tele - SR in 90's) Phys Exam - Physical Examination Constitutional: NAD alert, responsive, smiling HEENT: PERRLA, oral pharynx no lesions Neck: no JVD, supple chest incision CDI, CT's in place Respiratory: no wheezing, clear to auscultation bilateral Cardiovascular: RRR Gastrointestinal: soft, non-tender, no distention, positive bowel sounds Musculoskeletal: no edema, pulses present Neurological: normal sensation, moves all 4 limbs Psychiatric: A&O x 3 Skin: normal turgor, cap refill <2 seconds Dx/Plan (1) NSTEMI (non-ST elevated myocardial infarction) Code(s): I21.4 - NON-ST ELEVATION (NSTEMI) MYOCARDIAL INFARCTION Status: Acute Comment: ASA 325mg daily, statin, B-edvin, KATIA-i for d/c (2) Atrial flutter with rapid ventricular response Code(s): I48.92 - UNSPECIFIED ATRIAL FLUTTER Status: Acute Comment: Converted to SR, continue to monitor, Xarelto for d/c (3) Normocytic anemia Code(s): D64.9 - ANEMIA, UNSPECIFIED Status: Chronic Comment: Chronic anemia , mild, no evidence of acute loss, serial H/H monitoring (4) CKD (chronic kidney disease), stage II Code(s): N18.2 - CHRONIC KIDNEY DISEASE, STAGE 2 (MILD) Status: Chronic Comment: Avoid nephrotoxic agents and limit contrast media, serial monitoring (5) 3-vessel coronary artery disease Status: Acute Comment: LAD, Cx, RCA with varying stenosis, s/p CABG x 5 POD # 1 (6) Ischemic cardiomyopathy Code(s): I25.5 - ISCHEMIC CARDIOMYOPATHY Status: Chronic Comment: EF 30-35% , see above, CABG today (7) Status post aorto-coronary artery bypass graft Code(s): Z95.1 - PRESENCE OF AORTOCORONARY BYPASS GRAFT Status: Acute Comment: POD #1, routine post op care - Plan plan discussed w/ family, PT/OT, social human services assistants, incentive spirometry, DVT proph w/SCDs Continue critical support -: Wean Levophed as clinically tolerated -: Continue ASA and Statin -: Cardiac rehab when able to ambulate -: AM lab: BMP, CBC * .
[2017-09-09] MEDS: HYDROcodone/Acetaminophen 5/325 mg Tablet PO PRN (16:50)
[2017-09-09] MEDS: Atorvastatin Calcium 40 MG TAB PO SCH (20:36)
[2017-09-10] MEDS: Insulin Regular 300 UNITS/3 ML VIAL SC PRN ×5 (04:12→19:29)
[2017-09-10 04:36] LABS: Anion Gap 13 mmol/L (10-20); BUN (Urea Nitrogen) 34 mg/dL (8.4-25.7); Calc. Creatinine Clearance 39 mL/min (70-130); Carbon Dioxide 24 mmol/L (23-31); Chloride 101 mmol/L (98-107); Estimated GFR-MDRD 29
[2017-09-10] MEDS: Ketorolac Tromethamine 30 MG/ML VIAL IVP SCH (05:09)
[2017-09-10] MEDS: Aspirin 325 MG TAB PO SCH (08:19)
[2017-09-10] MEDS: Magnesium 2 GM/NS 0.9% 50 ML 2 GM in Premix Bag 1 BAG IVPB SCH (08:19)
[2017-09-10] MEDS: Famotidine/PF 20 mg/2ml Vial SLOW IVP SCH ×2 (08:20→20:14)
[2017-09-10] MEDS: Hydrocortisone Sod Succ/PF 100 mg/2 ml Vial IVP SCH ×3 (08:52→20:14)
[2017-09-10 09:06] LABS: Hematocrit 28.7 % (42.0-52.0); Mean Platelet Volume 9.2 fL (7.4-10.4); Red Blood Cell (RBC) Count 3.55 mill/uL (4.70-6.10); White Blood Cell (WBC) Count 12.1 thou/uL (4.8-10.8)
--- NOTE | 2017-09-10 09:16 | PDOC.PN ---
- Subjective Encounter Start Date: 09/10/17 Encounter Start Time: 09:14 Patient seen and examined. No new complaints. No overnight events feeling good. No chest pain or sob. UO 15-20cc/hr per the bedside nurse. No fever or chills. - Objective MAR Reviewed: Yes Vital Signs & Weight: Vital Signs (12 hours) Temp Pulse Ox 09/10/17 07:54 96 09/10/17 07:00 98.3 F 09/10/17 04:00 98.5 F 09/10/17 00:00 98.6 F Weight Weight 207 lb 10.807 oz Most Recent Monitor Data Heart Rate from ECG 74 NIBP 115/66 NIBP BP-Mean 73 Respiration from ECG 22 SpO2 98 I&O: 09/09/17 09/10/17 09/11/17 06:59 06:59 06:59 Intake Total 932 2726 450 Output Total 675 1229 105 Balance 257 1497 345 Result Diagrams: 09/10/17 04:10 09/10/17 04:10 Additional Labs: Accuchecks 09/10/17 09/10/17 09/09/17 08:04 04:10 23:27 POC Glucose 144 H 136 H 127 H 09/09/17 09/09/17 09/09/17 19:22 18:14 12:32 POC Glucose 192 H 188 H 123 H Phys Exam - Physical Examination Constitutional: NAD HEENT: sclera anicteric Neck: supple Respiratory: no wheezing, no rales Cardiovascular: RRR Gastrointestinal: soft Musculoskeletal: no edema Neurological: non-focal, moves all 4 limbs Psychiatric: normal affect, A&O x 3 Skin: no rash Dx/Plan (1) TAURUS (acute kidney injury) Code(s): N17.9 - ACUTE KIDNEY FAILURE, UNSPECIFIED Status: Acute (2) 3-vessel coronary artery disease Status: Acute Comment: LAD, Cx, RCA with varying stenosis, s/p CABG x 5 POD # 1 (3) Atrial flutter with rapid ventricular response Code(s): I48.92 - UNSPECIFIED ATRIAL FLUTTER Status: Acute Comment: Converted to SR, continue to monitor, Xarelto for d/c (4) NSTEMI (non-ST elevated myocardial infarction) Code(s): I21.4 - NON-ST ELEVATION (NSTEMI) MYOCARDIAL INFARCTION Status: Acute Comment: ASA 325mg daily, statin, B-edvin, KATIA-i for d/c (5) Ischemic cardiomyopathy Code(s): I25.5 - ISCHEMIC CARDIOMYOPATHY Status: Chronic Comment: EF 30-35% , see above, CABG today - Plan cont current plan of care * . TAURUS - will stop ketorolac. fluids per CT surgery and PCCM. started on albumin today repeat bmp this afternoon. AM labs. will monitor. Appreciate input from CV surgery, PCCM and cardiology.
[2017-09-10 09:59] LABS: Crenated RBC SLIGHT = 1-5 cells (100X) (None Seen); Neutrophil 86 % (42-75); Polychromasia SLIGHT = 2-3 cells (100X) (0-2/hpf)
[2017-09-10 15:39] LABS: Anion Gap 14 mmol/L (10-20); BUN (Urea Nitrogen) 41 mg/dL (8.4-25.7); Calc. Creatinine Clearance 38 mL/min (70-130); Calcium 8.1 mg/dL (7.8-10.44); Carbon Dioxide 23 mmol/L (23-31); Chloride 99 mmol/L (98-107); Estimated GFR-MDRD 28
--- NOTE | 2017-09-10 17:07 | PDOC.CTH ---
Cardiology Progress Note - Subjective Doing better, No new issues. - Objective Vital Signs Temp Pulse Resp Pulse Ox 09/10/17 15:00 98.7 F 09/10/17 11:00 97.9 F 09/10/17 08:00 98.3 F 72 16 99 09/10/17 07:54 96 09/10/17 07:00 98.3 F Weight 207 lb 10.807 oz 09/09/17 09/10/17 09/11/17 06:59 06:59 06:59 Intake Total 932 2726 1378 Output Total 675 1229 435 Balance 257 1497 943 - Physical Examination General/Neuro: alert & oriented x3, NAD Neck: no JVD present Lungs: CTA, unlabored respirations Heart: RRR Abdomen: NT/ND Extremities: + edema B (1+) - Telemetry Telemetry Rhythm: NSR - Labs Result Diagrams: 09/10/17 04:10 09/10/17 15:00 Troponin/CKMB CK-MB (CK-2) 11.3 ng/mL (0-6.6) H* 09/07/17 00:10 Troponin I 2.018 ng/mL (< 0.028) H* 09/08/17 05:10 - Assessment/Plan 1. Multivessel CAD 2. s/p CABG 3. Aflutter, currently in sinus. 4. TAURUS on CKD. PLAN: - Continue post op care. - Start PT once tubes out. - Aspirin, statin for life. - BB and ACEI once BP allows. - Xarelto before discharge for stroke prophylaxis. - Still needing levophed to maintain BP.
--- NOTE | 2017-09-10 17:36 | PRG ---
DATE OF SERVICE: 09/10/2017 SUBJECTIVE: Awake, alert and responsive. No pain and no shortness of breath. OBJECTIVE: Blood pressure is still low; the A-line is 97/54, cuff 126/63; pulse 82; respirations 18 . CHEST: Decreased breath sounds. No wheezing. CARDIAC: Normal S1, S2. ABDOMEN: Soft, no masses. LABORATORY DATA: I's and O's are 2726 in and 1229 out. He creatinine has gone up to 2.23, BUN is 3 4. Cortisol level is 19. IMPRESSION: 1. Status post coronary artery bypass graft. 2. Hypotension, probably relative adrenal insufficiency, his cortisol level is 19 with low blood pr essure. 3. Mild renal failure. PLAN: Avoid nephrotoxic drugs. Trial of albumin, hopefully will get him off the pressors. Diet, PT and supportive care.
[2017-09-10] MEDS: Atorvastatin Calcium 40 MG TAB PO SCH (20:14)
[2017-09-11] MEDS: Insulin Regular 300 UNITS/3 ML VIAL SC PRN ×5 (00:20→23:37)
[2017-09-11] MEDS: Hydrocortisone Sod Succ/PF 100 mg/2 ml Vial IVP SCH ×2 (03:31→08:44)
[2017-09-11 05:01] LABS: Anion Gap 10 mmol/L (10-20); BUN (Urea Nitrogen) 47 mg/dL (8.4-25.7); Calc. Creatinine Clearance 52 mL/min (70-130); Calcium 8.5 mg/dL (7.8-10.44); Carbon Dioxide 27 mmol/L (23-31); Chloride 100 mmol/L (98-107); Estimated GFR-MDRD 40
[2017-09-11] MEDS: Aspirin 325 MG TAB PO SCH (08:43)
[2017-09-11] MEDS: Famotidine/PF 20 mg/2ml Vial SLOW IVP SCH (08:44)
[2017-09-11] MEDS ORDERED: Artificial Tears 18 DROP/0.9 ML EA EYE PRN (11:46)
[2017-09-11] MEDS ORDERED: diphenhydrAMINE 25 MG CAP PO PRN (11:46)
[2017-09-11] MEDS ORDERED: Nitroglycerin 0.4 MG TAB (25 Tab Bottle) SL PRN (11:46)
[2017-09-11] MEDS ORDERED: Guaifenesin DM 100-10/5 ML UDCUP PO PRN (11:46)
[2017-09-11] MEDS ORDERED: Milk Of Magnesia 30 ML UDCUP PO PRN (11:46)
[2017-09-11] MEDS ORDERED: Bisacodyl 10 MG SUPP PR PRN (11:46)
[2017-09-11] MEDS ORDERED: Bisacodyl 5 MG TAB PO PRN (11:46)
[2017-09-11] MEDS ORDERED: Mineral Oil ENEMA PR PRN (11:46)
[2017-09-11] MEDS ORDERED: Zolpidem Tartrate 5 MG TAB PO PRN (11:46)
[2017-09-11] MEDS ORDERED: Mag-Al 1200 mg/1200 mg/30 ML UDCUP PO PRN (11:46)
--- NOTE | 2017-09-11 11:48 | PRG ---
DATE OF SERVICE: 09/11/2017 SERVICE: Pulmonary Medicine. INTERVAL HISTORY: The patient is doing absolute outstanding. He denies any shortness of breath or chest discomfort. He has been up walking around. He is sitting in the chair multiple times daily. Otherwise, there were no overnight events. PHYSICAL EXAMINATION: VITAL SIGNS: Afebrile, pulse 85, blood pressure 137/75, respirations 21, saturation 100% on room air. GENERAL: Patient is awake, alert, in no apparent distress. LUNGS: Excellent air entry with no prolonged expiratory phase, wheezing, rhonchi or crackles. HEART: Normal rate, regular. ABDOMEN: Soft, nontender, nondistended. Bowel sounds positive. MUSCULOSKELETAL: No cyanosis or clubbing. Trace to 1+ pitting in the bilateral lower extremities, it is worse on the right. GENITOURINARY: Fofana catheter in place. NEUROLOGIC: Grossly nonfocal. LABORATORY DATA: Creatinine 1.70. BUN 47 and gently up trending. Sodium 133. Basic metabolic profile is otherwise unremarkable. ASSESSMENT: 1. Acute hypoxic respiratory failure, improving. 2. Atrial flutter with rapid ventricular response, currently normal sinus rhythm. 3. Acute systolic heart failure. 4. Non-ST elevation myocardial infarction. 5. Coronary artery bypass graft, postoperative day #3. PLAN: The patient can be transitioned out of the ICU to the floor. Pulmonary or Critical Care will continue to follow while he remains inhouse for the time being. Fofana catheter will be removed today. His kidney injury is improving. MTDD
[2017-09-11] MEDS ORDERED: Polyethylene Glycol 3350 17 GM Packet PO PRN (11:57)
[2017-09-11] MEDS ORDERED: Insulin Regular 300 UNITS/3 ML VIAL SC PRN (12:00)
[2017-09-11] MEDS ORDERED: Dextrose 50% Abboject 50 ML SYRINGE SLOW IVP PRN (12:00)
[2017-09-11] MEDS ORDERED: Dextrose 5% in Water 1,000 ML IV PRN (12:00)
--- NOTE | 2017-09-11 12:44 | PDOC.PN ---
- Subjective Encounter Start Date: 09/11/17 Encounter Start Time: 11:30 Patient seen and examined. No new complaints. No overnight events - Objective MAR Reviewed: Yes Vital Signs & Weight: Vital Signs (12 hours) Temp Pulse Pulse Pulse Resp BP BP 09/11/17 12:10 89 86 137/75 124/80 09/11/17 12:00 98.4 F 09/11/17 08:00 98.4 F 80 23 H 09/11/17 07:13 09/11/17 04:00 98.4 F Pulse Ox Pulse Ox Pulse Ox 09/11/17 12:10 100 100 09/11/17 12:00 09/11/17 08:00 09/11/17 07:13 97 09/11/17 04:00 Weight Weight 210 lb 5.136 oz Most Recent Monitor Data Heart Rate from ECG 88 NIBP 132/80 NIBP BP-Mean 90 Respiration from ECG 24 SpO2 100 I&O: 09/10/17 09/11/17 09/12/17 06:59 06:59 06:59 Intake Total 2726 1498 600 Output Total 1229 940 645 Balance 1497 558 -45 Result Diagrams: 09/10/17 04:10 09/12/17 06:03 Additional Labs: Accuchecks 09/11/17 09/11/17 09/11/17 11:59 07:14 03:41 POC Glucose 197 H 174 H 185 H 09/11/17 09/10/17 09/10/17 00:19 19:27 15:06 POC Glucose 240 H 265 H 253 H 09/08/17 15:51 POC Glucose 108 EKG Reviewed by me: Yes (Tele SR) Phys Exam - Physical Examination Constitutional: NAD Respiratory: no wheezing, no rhonchi Cardiovascular: RRR, no rub Gastrointestinal: soft, positive bowel sounds Neurological: moves all 4 limbs Dx/Plan (1) Atrial flutter with rapid ventricular response Code(s): I48.92 - UNSPECIFIED ATRIAL FLUTTER Status: Acute Comment: in SR (2) NSTEMI (non-ST elevated myocardial infarction) Code(s): I21.4 - NON-ST ELEVATION (NSTEMI) MYOCARDIAL INFARCTION Status: Acute Comment: s/p CABG (3) TAURUS (acute kidney injury) Code(s): N17.9 - ACUTE KIDNEY FAILURE, UNSPECIFIED Status: Acute (4) CKD (chronic kidney disease), stage II Code(s): N18.2 - CHRONIC KIDNEY DISEASE, STAGE 2 (MILD) Status: Chronic Comment: Avoid nephrotoxic agents and limit contrast media, serial monitoring (5) Ischemic cardiomyopathy Code(s): I25.5 - ISCHEMIC CARDIOMYOPATHY Status: Chronic Comment: EF 30-35% , Acute on chronic systolic heart failure (6) Other issues per previous notes - Plan cont current plan of care, out of bed/ambulate, DVT proph w/SCDs * Cont current meds as below * Cont to monitor * CT/Cardio following * DC dias * Cont cardiac rehab * Xarelto at dc per Cardio Review of Systems - Review of Systems Respiratory: negative: Cough, Dry, Shortness of Breath, Hemoptysis, SOB with Excertion, Pleuritic Pain, Sputum, Wheezing Cardiovascular: negative: Chest Pain, Palpitations, Orthopnea, Paroxysmal Noc. Dyspnea, Edema, Light Headedness, Other Gastrointestinal: negative: Nausea, Vomiting, Abdominal Pain, Diarrhea, Constipation, Melena, Hematochezia, Other - Medications/Allergies Allergies/Adverse Reactions: Allergies Allergy/AdvReac Type Severity Reaction Status Date / Time penicillin G Allergy Verified 09/07/17 02:45 Medications: Current Medications Acetaminophen (Tylenol) 650 mg PO Q6H PRN PRN Reason: Headache/Fever Or Mild Pain Hydrocodone Bitart/Acetaminophen (Troup 5/325) 1 tab PO Q4H PRN PRN Reason: Moderate Pain (4-6) Last Admin: 09/09/17 16:50 Dose: 1 tab Hydrocodone Bitart/Acetaminophen (Troup 5/325) 2 tab PO Q4H PRN PRN Reason: Severe Pain (7-10) Al Hydroxide/Mg Hydroxide (Maalox) 30 ml PO Q4H PRN PRN Reason: Indigestion Al Hydroxide/Mg Hydroxide (Maalox) 30 ml PO Q4H PRN PRN Reason: Indigestion Albuterol/Ipratropium (Duoneb) 3 ml NEB [id number] PRN PRN Reason: SHORTNESS OF BREATH Artificial Tears (Tears Naturale) 0 drop EA EYE PRN PRN PRN Reason: Dry Eyes Aspirin (Aspirin) 325 mg PO DAILY [facility] Last Admin: 09/11/17 08:43 Dose: 325 mg Aspirin (Ecotrin) 325 mg PO DAILY [facility] Atorvastatin Calcium (Lipitor) 40 mg PO HS CHERYL Last Admin: 09/10/17 20:14 Dose: 40 mg Bisacodyl (Dulcolax) 10 mg PO Q12H PRN PRN Reason: Constipation Bisacodyl (Dulcolax) 10 mg VT Q12H PRN PRN Reason: Constipation Bisacodyl (Dulcolax) 10 mg PO Q12H PRN PRN Reason: Constipation Bisacodyl (Dulcolax) 10 mg VT Q12H PRN PRN Reason: Constipation Dextrose/Water (Dextrose 50%) 25 gm SLOW IVP PRN PRN PRN Reason: PER HYPOGLYCEMIC PROTOCOL Dextrose/Water (Dextrose 50%) 25 gm SLOW IVP PRN PRN PRN Reason: PER HYPOGLYCEMIC PROTOCOL Diphenhydramine HCl (Benadryl) 25 mg PO Q6H PRN PRN Reason: Itching & Insomnia or Cameron Ric Docusate Sodium (Colace) 100 mg PO BID CHERYL Famotidine (Pepcid) 20 mg PO Q12HR [facility] Glucagon (Glucagon) 1 mg SC PRN PRN PRN Reason: PER HYPOGLYCEMIC PROTOCOL Glucagon (Glucagon) 1 mg SC PRN PRN PRN Reason: PER HYPOGLYCEMIC PROTOCOL Guaifenesin/Dextromethorphan (Robitussin Dm) 15 ml PO Q4H PRN PRN Reason: Cough Guaifenesin/Dextromethorphan (Robitussin Dm) 15 ml PO Q4H PRN PRN Reason: Cough Hydralazine HCl (Apresoline) 10 mg SLOW IVP Q6H PRN PRN Reason: To Maintain SBP< 140mmHG Dextrose/Water (D5w) 1,000 mls @ 0 mls/hr IV INF PRN; As Directed PRN Reason: PRN HYPOGLYCEMIC PROTOCOL Dextrose/Water (D5w) 1,000 mls @ 0 mls/hr IV INF PRN; As Directed PRN Reason: PRN HYPOGLYCEMIC PROTOCOL Insulin Human Regular (Humulin R) 0 units SC Q4H PRN; Protocol PRN Reason: POST OP SLIDING SCALE Last Admin: 09/11/17 07:19 Dose: 4 unit Insulin Human Regular (Humulin R) 0 units SC Q4H PRN; Protocol PRN Reason: POST OP SLIDING SCALE Last Admin: 09/11/17 12:11 Dose: 4 unit Magnesium Hydroxide (Milk Of Magnesium) 30 ml PO Q12H PRN PRN Reason: Constipation Mineral Oil (Fleet Mineral Oil) 133 ml VT DAILYPRN PRN PRN Reason: Constipation Nitroglycerin (Nitrostat) 0.4 mg SL Q5MIN PRN PRN Reason: Chest Pain Ondansetron HCl (Zofran) 4 mg IVP Q6H PRN PRN Reason: Nausea/Vomiting Polyethylene Glycol (Miralax) 17 gm PO DAILY PRN PRN Reason: Constipation Zolpidem Tartrate (Ambien) 5 mg PO HSPRN PRN PRN Reason: Insomnia
--- NOTE | 2017-09-11 14:32 | PDOC.CTH ---
Cardiology Progress Note - Subjective Doing well. Remains in sinus rhythm postop. No CV complaints today. ROS otherwise negative. - Objective Vital Signs Temp Pulse Pulse Pulse Resp BP BP 09/11/17 12:10 89 86 137/75 124/80 09/11/17 12:00 98.4 F 09/11/17 08:00 98.4 F 80 23 H 09/11/17 07:13 09/11/17 04:00 98.4 F Pulse Ox Pulse Ox Pulse Ox 09/11/17 12:10 100 100 09/11/17 12:00 09/11/17 08:00 09/11/17 07:13 97 09/11/17 04:00 Weight 210 lb 5.136 oz 09/10/17 09/11/17 09/12/17 06:59 06:59 06:59 Intake Total 2726 1498 900 Output Total 1229 940 645 Balance 1497 558 255 - Physical Examination General/Neuro: alert & oriented x3, NAD Neck: carotid US brisk, no JVD present Lungs: CTA, unlabored respirations Heart: PMI normal, RRR Abdomen: no HSM, NT/ND, soft Extremities: other: (2+ pulses, no edema) Other PE findings: Neuro: no focal motor defs - Telemetry Telemetry Rhythm: sinus with PACs - Labs Result Diagrams: 09/10/17 04:10 09/11/17 03:45 Troponin/CKMB CK-MB (CK-2) 11.3 ng/mL (0-6.6) H* 09/07/17 00:10 Troponin I 2.018 ng/mL (< 0.028) H* 09/08/17 05:10 - Assessment/Plan 1. Multivessel CAD 2. s/p CABG 3. Aflutter, currently in sinus. 4. TAURUS on CKD. PLAN: - Continue post op care. - Start PT once tubes out. - Aspirin, statin for life. - BB and ACEI once BP allows. - Xarelto before discharge for stroke prophylaxis.
--- NOTE | 2017-09-11 16:12 | EKG ---
Test Reason : Blood Pressure : / mmHG Vent. Rate : 073 BPM Atrial Rate : 073 BPM P-R Int : 166 ms QRS Dur : 108 ms QT Int : 444 ms P-R-T Axes : 083 -45 112 degrees QTc Int : 489 ms Normal sinus rhythm Incomplete right bundle branch block Left anterior fascicular block Cannot rule out Anterior infarct , age undetermined Abnormal ECG Confirmed by LUZ ELENA MCGEE ([id number]) on 09/11/2017 4:12:31 PM Referred By: LUIS Confirmed By:LUZ ELENA MCGEE
[2017-09-11] MEDS: Atorvastatin Calcium 40 MG TAB PO SCH (20:31)
[2017-09-11] MEDS: Docusate 100 MG CAP PO SCH (20:31)
[2017-09-11] MEDS: HYDROcodone/Acetaminophen 5/325 mg Tablet PO PRN (20:32)
[2017-09-11] MEDS: Famotidine 20 MG TAB PO SCH (20:32)
[2017-09-12 06:16] VITALS: BMI 28.4
[2017-09-12 06:40] LABS: Anion Gap 10 mmol/L (10-20); BUN (Urea Nitrogen) 40 mg/dL (8.4-25.7); Calc. Creatinine Clearance 83 mL/min (70-130); Calcium 8.3 mg/dL (7.8-10.44); Carbon Dioxide 27 mmol/L (23-31); Chloride 99 mmol/L (98-107); Estimated GFR-MDRD 64
[2017-09-12] MEDS: Insulin Regular 300 UNITS/3 ML VIAL SC PRN ×4 (08:07→20:51)
[2017-09-12] MEDS: Docusate 100 MG CAP PO SCH ×2 (08:08→20:50)
[2017-09-12] MEDS: Famotidine 20 MG TAB PO SCH ×2 (08:08→20:50)
[2017-09-12] MEDS: Carvedilol 3.125 MG TAB PO SCH ×2 (08:08→17:43)
[2017-09-12] MEDS: Aspirin 325 mg Enteric Coated Tablet PO SCH (08:09)
--- NOTE | 2017-09-12 09:40 | PRG ---
DATE OF SERVICE: 09/12/2017 SERVICE: Pulmonary Medicine. INTERVAL HISTORY: The patient is doing great from cardiovascular and respiratory standpoint. Marisela johnson, denies any shortness of breath, fevers, chills, nausea, or vomiting. There were no overnight events. Otherwise, he is returning to his usual state of health. He hopes transition home today. PHYSICAL EXAMINATION: VITAL SIGNS: Afebrile, pulse 72, blood pressure 140/75, respirations 18, and saturation 97% on room air. GENERAL: The patient is awake, alert, in no apparent distress. LUNGS: Excellent air entry. There is no prolonged expiratory phase or wheezing. No dependent crac kles are appreciated. HEART: Normal rate, regular. ABDOMEN: Soft, nontender, nondistended. Bowel sounds positive. MUSCULOSKELETAL: No cyanosis or clubbing. There is no pitting in the bilateral lower extremities. NEUROLOGIC: Grossly nonfocal. LABORATORY DATA: Basic metabolic profile is completely unremarkable with a down trending BUN and cr eatinine. Sodium is roughly stable. ASSESSMENT: 1. Acute hypoxic respiratory failure, resolved. 2. Atrial flutter with rapid ventricular response, returned to normal sinus rhythm. 3. Acute systolic heart failure. 4. Non-ST elevation myocardial infarction. 5. Coronary bypass graft, postoperative day #4. PLAN: At this point, the patient has no further requirements for inpatient Pulmonary or Critical Ca re opinion. As such, I will sign off. Please call with additional questions or concerns or if the patient's clinical condition deteriorates.
[2017-09-12] MEDS ORDERED: Amiodarone HCl 150 MG, Admixture Fee 1 EACH in Dextrose 5% in Water 100 ML IVPB SCH ×3 (16:00)
[2017-09-12] MEDS: Amiodarone HCl 450 MG, Admixture Fee 1 EACH in Dextrose 5% in Water 250 ML IVPB SCH ×3 (16:41)
[2017-09-12] MEDS: metFORMIN 500 MG TAB PO SCH (17:43)
[2017-09-12] MEDS: Rivaroxaban 10 MG TAB PO SCH (17:43)
--- NOTE | 2017-09-12 20:49 | PDOC.PN ---
- Subjective Encounter Start Date: 09/12/17 Encounter Start Time: 12:00 Patient seen and examined. No new complaints. No overnight events - Objective MAR Reviewed: Yes Vital Signs & Weight: Vital Signs (12 hours) Temp Pulse Resp BP Pulse Ox 09/12/17 16:15 96 09/12/17 16:11 99.3 F 18 129/89 96 09/12/17 15:35 137 H 09/12/17 13:31 120 H 09/12/17 12:15 97 09/12/17 12:02 97.3 F L 70 18 118/74 97 Weight Weight 221 lb 11.2 oz Most Recent Monitor Data Heart Rate from ECG 84 NIBP 132/80 NIBP BP-Mean 90 Respiration from ECG 19 SpO2 100 I&O: 09/11/17 09/12/17 09/13/17 06:59 06:59 06:59 Intake Total 1498 1790 1038 Output Total 940 1770 400 Balance 558 20 638 Result Diagrams: 09/10/17 04:10 09/12/17 06:03 Additional Labs: Accuchecks 09/12/17 09/12/17 09/12/17 16:10 12:03 08:20 POC Glucose 164 H 189 H 177 H 09/12/17 09/11/17 09/11/17 05:45 23:28 20:50 POC Glucose 185 H 206 H 252 H EKG Reviewed by me: Yes (Tele SR) Phys Exam - Physical Examination Constitutional: NAD Respiratory: no wheezing, no rhonchi Cardiovascular: RRR, no rub Gastrointestinal: soft, non-tender, positive bowel sounds Musculoskeletal: no edema Dx/Plan (1) Atrial flutter with rapid ventricular response Code(s): I48.92 - UNSPECIFIED ATRIAL FLUTTER Status: Acute Comment: in SR (2) NSTEMI (non-ST elevated myocardial infarction) Code(s): I21.4 - NON-ST ELEVATION (NSTEMI) MYOCARDIAL INFARCTION Status: Acute Comment: s/p CABG (3) TAURUS (acute kidney injury) Code(s): N17.9 - ACUTE KIDNEY FAILURE, UNSPECIFIED Status: Acute (4) CKD (chronic kidney disease), stage II Code(s): N18.2 - CHRONIC KIDNEY DISEASE, STAGE 2 (MILD) Status: Chronic Comment: Avoid nephrotoxic agents and limit contrast media, serial monitoring (5) Ischemic cardiomyopathy Code(s): I25.5 - ISCHEMIC CARDIOMYOPATHY Status: Chronic Comment: EF 30-35% , Acute on chronic systolic heart failure (6) Other issues per previous notes - Plan cont current plan of care, DVT proph w/SCDs * Xarelto/Metformin started * Cont current meds as below * Cont to monitor * CT/Cardio following * Cont cardiac rehab Review of Systems - Review of Systems Respiratory: negative: Cough, Dry, Shortness of Breath, Hemoptysis, SOB with Excertion, Pleuritic Pain, Sputum, Wheezing Cardiovascular: negative: Chest Pain, Palpitations, Orthopnea, Paroxysmal Noc. Dyspnea, Edema, Light Headedness, Other Gastrointestinal: negative: Nausea, Vomiting, Abdominal Pain, Diarrhea, Constipation, Melena, Hematochezia, Other - Medications/Allergies Allergies/Adverse Reactions: Allergies Allergy/AdvReac Type Severity Reaction Status Date / Time penicillin G Allergy Verified 09/07/17 02:45 Medications: Current Medications Acetaminophen (Tylenol) 650 mg PO Q6H PRN PRN Reason: Headache/Fever Or Mild Pain Hydrocodone Bitart/Acetaminophen ([place] 5/325) 1 tab PO Q4H PRN PRN Reason: Moderate Pain (4-6) Last Admin: 09/11/17 20:32 Dose: 1 tab Hydrocodone Bitart/Acetaminophen ([place] 5/325) 2 tab PO Q4H PRN PRN Reason: Severe Pain (7-10) Last Admin: 09/12/17 04:46 Dose: 2 tab Al Hydroxide/Mg Hydroxide (Maalox) 30 ml PO Q4H PRN PRN Reason: Indigestion Albuterol/Ipratropium (Duoneb) 3 ml NEB [id number] PRN PRN Reason: SHORTNESS OF BREATH Artificial Tears (Tears Naturale) 0 drop EA EYE PRN PRN PRN Reason: Dry Eyes Aspirin (Ecotrin) 325 mg PO DAILY [facility] Last Admin: 09/12/17 08:09 Dose: 325 mg Atorvastatin Calcium (Lipitor) 40 mg PO HS [facility] Last Admin: 09/11/17 20:31 Dose: 40 mg Bisacodyl (Dulcolax) 10 mg PO Q12H PRN PRN Reason: Constipation Bisacodyl (Dulcolax) 10 mg [place] Q12H PRN PRN Reason: Constipation Carvedilol (Coreg) 3.125 mg PO BID-[facility] Last Admin: 09/12/17 17:43 Dose: 3.125 mg Dextrose/Water (Dextrose 50%) 25 gm SLOW IVP PRN PRN PRN Reason: PER HYPOGLYCEMIC PROTOCOL Diphenhydramine HCl (Benadryl) 25 mg PO Q6H PRN PRN Reason: Itching & Insomnia or Cameron Ric Last Admin: 09/11/17 20:32 Dose: 25 mg Docusate Sodium (Colace) 100 mg PO BID [facility] Last Admin: 09/12/17 08:08 Dose: 100 mg Famotidine (Pepcid) 20 mg PO Q12HR [facility] Last Admin: 09/12/17 08:08 Dose: 20 mg Glucagon (Glucagon) 1 mg SC PRN PRN PRN Reason: PER HYPOGLYCEMIC PROTOCOL Guaifenesin/Dextromethorphan (Robitussin Dm) 15 ml PO Q4H PRN PRN Reason: Cough Hydralazine HCl (Apresoline) 10 mg SLOW IVP Q6H PRN PRN Reason: To Maintain SBP< 140mmHG Dextrose/Water (D5w) 1,000 mls @ 0 mls/hr IV INF PRN; As Directed PRN Reason: PRN HYPOGLYCEMIC PROTOCOL Amiodarone HCl 450 mg/Miscellaneous Medication 1 each/ Dextrose/Water 259 mls @ 0 mls/hr IVPB INF [facility]; As Directed PRN Reason: Protocol Last Admin: 09/12/17 16:41 Dose: 259 mls Insulin Human Regular (Humulin R) 0 units SC Q4H PRN; Protocol PRN Reason: POST OP SLIDING SCALE Last Admin: 09/12/17 17:38 Dose: 4 unit Magnesium Hydroxide (Milk Of Magnesium) 30 ml PO Q12H PRN PRN Reason: Constipation Last Admin: 09/12/17 18:35 Dose: 30 ml Metformin HCl (Glucophage) 500 mg PO BID-[facility] Last Admin: 09/12/17 17:43 Dose: 500 mg Mineral Oil (Fleet Mineral Oil) 133 ml [place] DAILYPRN PRN PRN Reason: Constipation Nitroglycerin (Nitrostat) 0.4 mg SL Q5MIN PRN PRN Reason: Chest Pain Ondansetron HCl (Zofran) 4 mg IVP Q6H PRN PRN Reason: Nausea/Vomiting Polyethylene Glycol (Miralax) 17 gm PO DAILY PRN PRN Reason: Constipation Rivaroxaban (Xarelto) 20 mg PO 1800 [facility] Last Admin: 09/12/17 17:43 Dose: 20 mg Sodium Chloride (Flush - Normal Saline) 10 ml IVF Q12HR [facility] Sodium Chloride (Flush - Normal Saline) 10 ml IVF PRN PRN PRN Reason: Saline Flush Zolpidem Tartrate (Ambien) 5 mg PO HSPRN PRN PRN Reason: Insomnia
[2017-09-12] MEDS: Atorvastatin Calcium 40 MG TAB PO SCH (20:50)
[2017-09-13] MEDS: Insulin Regular 300 UNITS/3 ML VIAL SC PRN ×2 (00:52→04:46)
[2017-09-13] MEDS: Amiodarone HCl 450 MG, Admixture Fee 1 EACH in Dextrose 5% in Water 250 ML IVPB SCH ×3 (02:26)
[2017-09-13 06:42] LABS: Anion Gap 11 mmol/L (10-20); BUN (Urea Nitrogen) 32 mg/dL (8.4-25.7); Calc. Creatinine Clearance 100 mL/min (70-130); Calcium 8.7 mg/dL (7.8-10.44); Carbon Dioxide 26 mmol/L (23-31); Chloride 95 mmol/L (98-107); Estimated GFR-MDRD 79
[2017-09-13] MEDS: Carvedilol 3.125 MG TAB PO SCH ×2 (08:56→17:03)
[2017-09-13] MEDS: metFORMIN 500 MG TAB PO SCH ×2 (08:57→17:03)
[2017-09-13] MEDS: Docusate 100 MG CAP PO SCH ×2 (08:57→21:12)
[2017-09-13] MEDS: Aspirin 325 mg Enteric Coated Tablet PO SCH (08:57)
[2017-09-13] MEDS: Famotidine 20 MG TAB PO SCH ×2 (08:57→21:11)
--- NOTE | 2017-09-13 11:07 | PDOC.CTH ---
Cardiology Progress Note - Subjective No new complaints. Tolerating meds, diet, activity. Converted to AF yesterday. Amiodarone initiated with IV load per protocol. Rebolused this morning. ROS otherwise negative. - Objective Vital Signs Temp Pulse Resp BP Pulse Ox 09/13/17 07:59 98.3 F 130 H 18 101/68 96 09/13/17 04:00 99.9 F H 129 H 20 122/90 97 09/13/17 00:00 123 H 20 125/94 H Weight 225 lb 6.4 oz 09/12/17 09/13/17 09/14/17 06:59 06:59 06:59 Intake Total 1790 1766 Output Total 1770 1175 Balance 20 591 - Physical Examination General/Neuro: alert & oriented x3, NAD Neck: carotid US brisk, no JVD present Lungs: CTA, unlabored respirations Heart: other: (irregular) - Labs Result Diagrams: 09/10/17 04:10 09/13/17 06:04 Troponin/CKMB CK-MB (CK-2) 11.3 ng/mL (0-6.6) H* 09/07/17 00:10 Troponin I 2.018 ng/mL (< 0.028) H* 09/08/17 05:10 - Assessment/Plan 1. Multivessel CAD 2. s/p CABG 3. Aflutter/fibrillation: postop. 4. TAURUS on CKD. PLAN: - Continue post op care. - Aspirin, statin for life. - ACEI once BP allows. - Xarelto initiated for stroke prophylaxis. - Will continue amiodarone today and switch to oral therapy this afternoon. - Home tomorrow if rate controlled.
[2017-09-13] MEDS ORDERED: Amiodarone HCl 150 MG, Admixture Fee 1 EACH in Dextrose 5% in Water 100 ML IVPB SCH ×3 (11:30)
[2017-09-13] MEDS ORDERED: Digoxin 0.5 MG/2 ML AMP SLOW IVP SCH (11:45)
[2017-09-13] MEDS: Rivaroxaban 10 MG TAB PO SCH (17:02)
--- NOTE | 2017-09-13 18:59 | PDOC.PN ---
- Subjective Encounter Start Date: 09/13/17 Encounter Start Time: 18:59 Patient seen and examined. No new complaints. On Amio drip for Afib with RVR - Objective MAR Reviewed: Yes Vital Signs & Weight: Vital Signs (12 hours) Temp Pulse Resp BP Pulse Ox 09/13/17 16:00 98.0 F 103 H 18 166/91 H 96 09/13/17 12:52 118 H 09/13/17 11:35 98.7 F 99 18 122/69 97 09/13/17 07:59 98.3 F 130 H 18 101/68 96 Weight Weight 225 lb 6.4 oz Most Recent Monitor Data Heart Rate from ECG 84 NIBP 132/80 NIBP BP-Mean 90 Respiration from ECG 19 SpO2 100 I&O: 09/12/17 09/13/17 09/14/17 06:59 06:59 06:59 Intake Total 1790 1766 1292 Output Total 1770 1175 780 Balance 20 591 512 Result Diagrams: 09/10/17 04:10 09/14/17 05:33 Additional Labs: Accuchecks 09/13/17 09/13/17 09/13/17 16:55 11:46 08:05 POC Glucose 138 H 147 H 106 09/13/17 09/13/17 09/12/17 04:44 00:34 20:44 POC Glucose 142 H 226 H 215 H EKG Reviewed by me: Yes (Tele SR) Phys Exam - Physical Examination Constitutional: NAD Respiratory: no wheezing, no rhonchi Cardiovascular: RRR, no rub Gastrointestinal: soft, non-tender, positive bowel sounds Musculoskeletal: no edema Dx/Plan (1) Atrial fibrillation with RVR Code(s): I48.91 - UNSPECIFIED ATRIAL FIBRILLATION Status: Acute Comment: Post op (2) Atrial flutter with rapid ventricular response Code(s): I48.92 - UNSPECIFIED ATRIAL FLUTTER Status: Acute Comment: in SR (3) NSTEMI (non-ST elevated myocardial infarction) Code(s): I21.4 - NON-ST ELEVATION (NSTEMI) MYOCARDIAL INFARCTION Status: Acute Comment: s/p CABG (4) TAURUS (acute kidney injury) Code(s): N17.9 - ACUTE KIDNEY FAILURE, UNSPECIFIED Status: Acute (5) CKD (chronic kidney disease), stage II Code(s): N18.2 - CHRONIC KIDNEY DISEASE, STAGE 2 (MILD) Status: Chronic Comment: Avoid nephrotoxic agents and limit contrast media, serial monitoring (6) Ischemic cardiomyopathy Code(s): I25.5 - ISCHEMIC CARDIOMYOPATHY Status: Chronic Comment: EF 30-35% , Acute on chronic systolic heart failure (7) Other issues per previous notes - Plan cont current plan of care * On Amio drip * on Xarelto for stroke prophylaxis * Cont current meds as below * Cont to monitor * CT/Cardio following * Cont cardiac rehab * AM labs * Hold ACEI for now due to recent renal failure. Review of Systems - Review of Systems Respiratory: negative: Cough, Dry, Shortness of Breath, Hemoptysis, SOB with Excertion, Pleuritic Pain, Sputum, Wheezing Cardiovascular: negative: Chest Pain, Palpitations, Orthopnea, Paroxysmal Noc. Dyspnea, Edema, Light Headedness, Other - Medications/Allergies Allergies/Adverse Reactions: Allergies Allergy/AdvReac Type Severity Reaction Status Date / Time penicillin G Allergy Verified 09/07/17 02:45 Medications: Current Medications Acetaminophen (Tylenol) 650 mg PO Q6H PRN PRN Reason: Headache/Fever Or Mild Pain Hydrocodone Bitart/Acetaminophen ([place] 5/325) 1 tab PO Q4H PRN PRN Reason: Moderate Pain (4-6) Last Admin: 09/11/17 20:32 Dose: 1 tab Hydrocodone Bitart/Acetaminophen ([place] 5/325) 2 tab PO Q4H PRN PRN Reason: Severe Pain (7-10) Last Admin: 09/12/17 04:46 Dose: 2 tab Al Hydroxide/Mg Hydroxide (Maalox) 30 ml PO Q4H PRN PRN Reason: Indigestion Albuterol/Ipratropium (Duoneb) 3 ml NEB [id number] PRN PRN Reason: SHORTNESS OF BREATH Amiodarone HCl (Cordarone) 400 mg PO BID [facility] Artificial Tears (Tears Naturale) 0 drop EA EYE PRN PRN PRN Reason: Dry Eyes Aspirin (Ecotrin) 325 mg PO DAILY [facility] Last Admin: 09/13/17 08:57 Dose: 325 mg Atorvastatin Calcium (Lipitor) 40 mg PO HS [facility] Last Admin: 09/12/17 20:50 Dose: 40 mg Bisacodyl (Dulcolax) 10 mg PO Q12H PRN PRN Reason: Constipation Bisacodyl (Dulcolax) 10 mg [place] Q12H PRN PRN Reason: Constipation Carvedilol (Coreg) 3.125 mg PO BID-[facility] Last Admin: 09/13/17 17:03 Dose: 3.125 mg Dextrose/Water (Dextrose 50%) 25 gm SLOW IVP PRN PRN PRN Reason: PER HYPOGLYCEMIC PROTOCOL Diphenhydramine HCl (Benadryl) 25 mg PO Q6H PRN PRN Reason: Itching & Insomnia or Cameron Ric Last Admin: 09/11/17 20:32 Dose: 25 mg Docusate Sodium (Colace) 100 mg PO BID [facility] Last Admin: 09/13/17 08:57 Dose: 100 mg Famotidine (Pepcid) 20 mg PO Q12HR [facility] Last Admin: 09/13/17 08:57 Dose: 20 mg Glucagon (Glucagon) 1 mg SC PRN PRN PRN Reason: PER HYPOGLYCEMIC PROTOCOL Guaifenesin/Dextromethorphan (Robitussin Dm) 15 ml PO Q4H PRN PRN Reason: Cough Hydralazine HCl (Apresoline) 10 mg SLOW IVP Q6H PRN PRN Reason: To Maintain SBP< 140mmHG Dextrose/Water (D5w) 1,000 mls @ 0 mls/hr IV INF PRN; As Directed PRN Reason: PRN HYPOGLYCEMIC PROTOCOL Insulin Human Regular (Humulin R) 0 units SC Q4H PRN; Protocol PRN Reason: POST OP SLIDING SCALE Last Admin: 09/13/17 04:46 Dose: 3 unit Magnesium Hydroxide (Milk Of Magnesium) 30 ml PO Q12H PRN PRN Reason: Constipation Last Admin: 09/12/17 18:35 Dose: 30 ml Metformin [facility] (Glucophage) [facility] Last Admin: 09/13/17 17:03 Dose: 500 mg Mineral Oil (Fleet Mineral Oil) 133 ml [place] DAILYPRN PRN PRN Reason: Constipation Nitroglycerin (Nitrostat) 0.4 mg SL Q5MIN PRN PRN Reason: Chest Pain Ondansetron HCl (Zofran) 4 mg IVP Q6H PRN PRN Reason: Nausea/Vomiting Polyethylene Glycol (Miralax) 17 gm PO DAILY PRN PRN Reason: Constipation Rivaroxaban (Xarelto) 20 mg PO 1800 [facility] Last Admin: 09/13/17 17:02 Dose: 20 mg Sodium Chloride (Flush - Normal Saline) 10 ml IVF Q12HR [facility] Last Admin: 09/13/17 08:57 Dose: Not Given Sodium Chloride (Flush - Normal Saline) 10 ml IVF PRN PRN PRN Reason: Saline Flush Zolpidem Tartrate (Ambien) 5 mg PO HSPRN PRN PRN Reason: Insomnia
[2017-09-13] MEDS: Atorvastatin Calcium 40 MG TAB PO SCH (21:14)
[2017-09-14] MEDS ORDERED: Amiodarone HCl 450 MG, Admixture Fee 1 EACH in Dextrose 5% in Water 250 ML IVPB SCH ×3 (01:15)
[2017-09-14 06:33] LABS: Anion Gap 10 mmol/L (10-20); BUN (Urea Nitrogen) 23 mg/dL (8.4-25.7); Calc. Creatinine Clearance 114 mL/min (70-130); Calcium 8.4 mg/dL (7.8-10.44); Carbon Dioxide 26 mmol/L (23-31); Chloride 98 mmol/L (98-107); Estimated GFR-MDRD Greater than 90
[2017-09-14] MEDS: Carvedilol 3.125 MG TAB PO SCH (08:47)
[2017-09-14] MEDS: metFORMIN 500 MG TAB PO SCH (08:48)
[2017-09-14] MEDS: Aspirin 325 mg Enteric Coated Tablet PO SCH (08:50)
[2017-09-14] MEDS: Docusate 100 MG CAP PO SCH (08:50)
[2017-09-14] MEDS: Famotidine 20 MG TAB PO SCH (08:51)
[2017-09-14 11:49] VITALS: TEMP 98
[2017-09-14 12:20] VITALS: BP 113/59
[2017-09-14] MEDS: Insulin Regular 300 UNITS/3 ML VIAL SC PRN (12:29)
--- NOTE | 2017-09-15 09:02 | DIS ---
DATE OF ADMISSION: 09/07/2017 DATE OF DISCHARGE: 09/14/2017 DISCHARGE DISPOSITION: Home. FOLLOWUP: Follow up with primary care physician at [facility], [place] in one week. He will al so follow up with Cardiology, Dr. Binh Adan and Dr. Vamshi Hale as scheduled. Outpatient cardi ac rehabilitation was arranged. ALLERGIES: PENICILLIN G. The patient was seen and examined on the day of discharge. Denies any new complaints. No chest pete n, shortness of breath, palpitations reported. BRIEF HOSPITAL COURSE: The patient is a 72-year-old male with diabetes mellitus type 2 and hyperten suzy presented to the hospital with chest discomfort. Please refer to the history and physical date d 09/06/[address] Stout for further details. The patient was admitted to the hospital with the diagnosis of new onset atrial flutter along with n on-ST elevation NC. His initial troponin was 2.0 with CK-MB of 11.3. He was placed on Cardizem dri p. He was seen by Cardiology, Dr. Adan and Critical care, Dr. Rich while in the intensive care [facility]. Cardiac catheterization was performed that showed three-vessel disease. He underwent coronary artery bypass grafting on 09/08/2017. Postoperatively, he did well. Two days prior to discharge, patient went back into atrial fibrillation with rapid ventricular response requiring amiodarone drip that has been changed to p.o. He will follow up with Cardiology after 2 weeks for amiodarone taper . He will continue amiodarone 400 mg b.i.d. for now. Please refer to the marine engineering consultant's note for det ails. DISCHARGE MEDICATIONS: 1. Amiodarone 400 mg twice a day, #28 was provided. 2. Aspirin 325 mg daily. 3. Lipitor 40 mg daily. 4. Coreg 3.125 mg b.i.d. 5. Metformin 500 mg b.i.d. 6. Xarelto 20 mg daily (new medication). 7. Adrian as needed. Please note that KATIA inhibitor will be held due to acute kidney injury during this hospital stay. H is maximum creatinine went up to 2.23 and has been improving. He can be started on KATIA inhibitor as outpatient. His blood pressure on the day of discharge was 113/59 which was another reason to hold KATIA inhibitor. ASSESSMENT AND PLAN: 1. Non-ST elevation myocardial infarction. 2. Atrial flutter with rapid ventricular response on admission. Patient converted to sinus rhythm. 3. Multivessel coronary artery disease requiring coronary artery bypass grafting. 4. Postoperative atrial fibrillation with rapid ventricular response. 5. Acute kidney injury on chronic kidney disease stage 2. 6. Ischemic cardiomyopathy. His echocardiogram showed ejection fraction of 35%-40%. Questionable acute on chronic systolic heart failure. 7. Diabetes mellitus type 2. 8. Hypertension. 9. Electrolyte imbalances including hyponatremia. 10. Abnormal liver function tests on admission, probably secondary to passive hepatic congestion. Repeat liver function tests as outpatient is recommended. 11. Chronic anemia. 12. Chronic anticoagulation that was started on this admission. Plan of care was discussed with the patient. He stated understanding. Total time coordinating the discharge of this patient was 35 minutes.
[2017-09-18 11:03] LABS: Sodium 138 mmol/L (135-148)
[2017-09-18 11:13] LABS: Base Excess 0.9 mEq/L (0 (+/- 2.5)); O2 Content (venous) 7.7 VOL% (12.5-17.5)
[2017-09-18 11:13] LABS: Sodium 137 mmol/L (135-148)
[2017-09-18 11:13] LABS: Oxyhemoglobin 96.7 % (94.0-97.0); Sodium 138 mmol/L (135-148)
[2017-09-18 11:13] LABS: Oxyhemoglobin 97.1 % (94.0-97.0); Sodium 137 mmol/L (135-148)
[2017-09-18 11:13] LABS: Oxyhemoglobin 96.6 % (94.0-97.0); Sodium 138 mmol/L (135-148)
[2017-09-18 11:15] LABS: Oxyhemoglobin 96.9 % (94.0-97.0); Sodium 140 mmol/L (135-148)
[2017-09-18 11:15] LABS: Oxyhemoglobin 96.8 % (94.0-97.0); Sodium 139 mmol/L (135-148)
[2017-09-18 11:34] LABS: Mode OR ABG; Vent YES
[2017-09-18 11:34] LABS: Mode OR ABG; Vent YES
[2017-09-18 11:35] LABS: Mode OR ABG; Vent YES
[2017-09-18 11:35] LABS: Mode OR ABG; Vent YES
[2017-09-18 11:36] LABS: Mode OR ABG; Vent YES
[2017-09-18 11:37] LABS: Mode OR ABG; Vent YES
[2017-09-18 13:09] LABS: Mode OR ABG; Vent YES
== END 2017-09-14 16:30 | disposition home or self-care (01) | DRG 228 ==
LOC: ERS 22:44 → IMCU/EMU 09-07 00:06 → 2NO 09-07 21:08 → CCU 09-08 12:43 → 2NO 09-11 15:10
PROVIDERS: ADMIT Internal Medicine; ATTEND Internal Medicine
PROC: 4A023N7 Measurement of Cardiac Sampling and Pressure, Left Heart, Percutaneous Approach (ICD-10-PCS; principal; 2017-09-08)
PROC: 02580ZZ Destruction of Conduction Mechanism, Open Approach (ICD-10-PCS; 2017-09-08)
PROC: 02100Z9 Bypass Coronary Artery, One Artery from Left Internal Mammary, Open Approach (ICD-10-PCS; 2017-09-08)
PROC: 021309W Bypass Coronary Artery, Four or More Arteries from Aorta with Autologous Venous Tissue, Open Approach (ICD-10-PCS; 2017-09-08)
PROC: 06BQ0ZZ Excision of Left Saphenous Vein, Open Approach (ICD-10-PCS; 2017-09-08)
PROC: B2111ZZ Fluoroscopy of Multiple Coronary Arteries using Low Osmolar Contrast (ICD-10-PCS; 2017-09-08)
PROC: B2151ZZ Fluoroscopy of Left Heart using Low Osmolar Contrast (ICD-10-PCS; 2017-09-08)
PROC: 02L70ZK Occlusion of Left Atrial Appendage, Open Approach (ICD-10-PCS; 2017-09-08)
PROC: 5A1221Z Performance of Cardiac Output, Continuous (ICD-10-PCS; 2017-09-08)
DX: I21.4 Non-ST elevation (NSTEMI) myocardial infarction (principal); J96.01 Acute respiratory failure with hypoxia; N17.9 Acute kidney failure, unspecified; I50.23 Acute on chronic systolic (congestive) heart failure; I48.92 Unspecified atrial flutter; E87.1 Hypo-osmolality and hyponatremia; I13.0 Hypertensive heart and chronic kidney disease with heart failure and stage 1 through stage 4 chronic kidney disease, or unspecified chronic kidney disease; E11.22 Type 2 diabetes mellitus with diabetic chronic kidney disease; I25.119 Atherosclerotic heart disease of native coronary artery with unspecified angina pectoris; N18.2 Chronic kidney disease, stage 2 (mild); Z79.84 Long term (current) use of oral hypoglycemic drugs; K76.1 Chronic passive congestion of liver; D64.9 Anemia, unspecified; I48.91 Unspecified atrial fibrillation; I25.5 Ischemic cardiomyopathy; Z88.0 Allergy status to penicillin
CPT/HCPCS: 36415; 36416; 71010; 80048; 80053; 82533; 82553; 82805; 83735; 84443; 84484; 85007; 85025; 85027; 85610; 85730; 86850; 86900; 86901; 90471; 90732; 93005; 93010; 93306; 93458; 93798; 94002; 94150; 96372; 96374; 99152; A4216; C1769; G0009; J0282; J1160; J1642; J1644; J1650; J1720; J1815; J1885; J1956; J2001; J2250; J2260; J2704; J3010; J3370; J3475; J3480; J3490; J7050; J7070; P9045; P9047; S0028

== ENCOUNTER 2017-10-24 09:25 | Outpatient (CLI) | payer MEDICARE, BC ==
--- NOTE | 2017-10-24 10:22 | RAD ---
TWO VIEWS CHEST: Date: 10-24-17 Comparison: 09-22-17 FINDINGS: Two views chest demonstrates sternotomy wires seen. A small left sided pleural effusion remains, sign ificantly smaller than on the previous comparison exam from approximately 1 month earlier. No acute i ntrathoracic abnormalities seen. No evidence of pneumothorax. The right lung is well aerated. IMPRESSION: Small residual left sided pleural effusion. No other acute intrathoracic abnormality is seen. POS: [facility]
== END 2017-10-24 09:26 | disposition home or self-care (01) ==
LOC: RAD 09:25
PROVIDERS: ATTEND Internal Medicine
DX: R06.00 Dyspnea, unspecified (principal); J90 Pleural effusion, not elsewhere classified
CPT/HCPCS: 71020

== ENCOUNTER 2018-04-25 12:36 | Outpatient (CLI) | payer MEDICARE, BC ==
--- NOTE | 2018-04-25 13:59 | RAD ---
CHEST 2 VIEWS: Date: 04/25/18 HISTORY: Dyspnea. COMPARISON: 10/24/17. FINDINGS: Cardiac silhouette and pulmonary vasculature are unremarkable. Mediastinum midline with postoperative changes. Lungs remain hyperinflated. Blunting of the left lateral costophrenic angle is less pronoun terrie than on the prior study. IMPRESSION: 1. Continued interval decrease left pleural fluid. 2. COPD. POS: [facility]
== END 2018-04-25 12:37 | disposition home or self-care (01) ==
LOC: RAD 12:36
PROVIDERS: ATTEND Internal Medicine
DX: R06.00 Dyspnea, unspecified (principal); J44.9 Chronic obstructive pulmonary disease, unspecified; J98.4 Other disorders of lung
CPT/HCPCS: 71046